=== PATIENT | male | born 1935 | race Caucasian/White ===

== ENCOUNTER → 2017-02-20 | Outpatient (REF) | payer MEDICARE, OTHER ==
[~2017-02-20] MED LIST: /QUIN20TA PO; ACTO30TA PO; ASPI81TA83 PO; METF500T4 PO; SIMV20TA2 PO; VICO5TAB OR; januvia PO
== END ==
LOC: M LAB REF 15:51
PROVIDERS: ATTEND Surgery
DX: D48.5 Neoplasm of uncertain behavior of skin (principal)

== ENCOUNTER → 2017-06-19 | Outpatient (REF) | payer MEDICARE, OTHER | LOC: M LAB REF 15:25 | PROVIDERS: ATTEND Nurse Practitioner Adult Health | DX: R41.3 Other amnesia (principal) ==

== ENCOUNTER 2017-10-09 14:06 | Inpatient (IN) | payer MEDICARE, OTHER ==
[2017-10-09 14:54] LABS: BEDSIDE GLUCOSE 326 MG/DL (83-110)
[2017-10-09 16:10] LABS: KETONE, URINE AUTO RFX TRACE mg/dL (NEGATIVE); LEUKOCYTE ESTERASE UR AUTO RFX NEGATIVE (NEGATIVE); MUCUS, URINE RFX SMALL (NEGATIVE); NITRITE, URINE AUTO RFX NEGATIVE (NEGATIVE); RBC, URINE AUTO RFX 4 /HPF (0-3); SQUAM EPITHELIAL CELL UR AURFX 0 /HPF (0-6); WBC, URINE AUTO RFX 1 /HPF (0-3)
[2017-10-09] MEDS: NS 1,000 ML IV ×2 (16:40→22:32)
[2017-10-09 16:41] LABS: BASO % 0.3 % (0.0-1.0); EOS # 0.1 10^3/uL (0.0-0.50); EOS % 1.1 % (0.0-3.0); HEMATOCRIT 38.6 % (42.0-52.0); HEMOGLOBIN 13.1 g/dl (13.5-17.5); IMMATURE GRANULOCYTE % 0.5 % (0-3.0); LYMPH # 0.8 10^3/uL (1.5-4.5); LYMPH % 7.3 % (24.0-44.0); MEAN CORPUSCULAR HEMOGLOBIN 30.8 pg (27.0-33.0); MEAN CORPUSCULAR HGB CONC 33.9 g/dl (32.0-36.5); MEAN CORPUSCULAR VOLUME 90.8 fl (80.0-96.0); MONO # 1.2 10^3/uL (0.0-0.8); MONO % 10.3 % (0.0-5.0); NEUTROPHILS # 9.2 10^3/uL (1.8-7.7); NEUTROPHILS % 80.5 % (36.0-66.0); PLATELET COUNT, AUTOMATED 124 10^3/uL (150-450); RED BLOOD COUNT 4.25 10^6/uL (4.30-6.10); RED CELL DISTRIBUTION WIDTH 12.9 % (11.5-14.5); WHITE BLOOD COUNT 11.5 10^3/uL (4.0-10.0)
[2017-10-09 17:11] LABS: AMMONIA < 10 uMOL/L (<32)
[2017-10-09 17:17] LABS: LACTIC ACID SEPSIS PROTOCOL 1.5 MMOL/L (0.4-2.0)
[2017-10-09 17:19] LABS: ALBUMIN 3.7 GM/DL (3.2-5.2); ALBUMIN/GLOBULIN RATIO 1.06 (1.00-1.93); ALKALINE PHOSPHATASE 96 U/L (45-117); ALT/SGPT < 6 U/L (12-78); ANION GAP 7 MEQ/L (8-16); AST/SGOT 11 U/L (7-37); BILIRUBIN,TOTAL 0.7 MG/DL (0.2-1.0); BLOOD UREA NITROGEN 31 MG/DL (7-18); CALCIUM LEVEL 9.3 MG/DL (8.8-10.2); CARBON DIOXIDE LEVEL 28 MEQ/L (21-32); CHLORIDE LEVEL 106 MEQ/L (98-107); CPK CREATINE PHOSPHOKINASE 235 U/L (39-308); CREATININE FOR GFR 1.57 MG/DL (0.70-1.30); GLOMERULAR FILTRATION RATE 45.1 (>35); GLUCOSE, FASTING 283 MG/DL (70-100); POTASSIUM SERUM 4.5 MEQ/L (3.5-5.1); SODIUM LEVEL 141 MEQ/L (136-145); TOTAL PROTEIN 7.2 GM/DL (6.4-8.2); TROPONIN I < 0.02 NG/ML (< 0.10)
[2017-10-09 17:24] LABS: BILIRUBIN,DIRECT 0.2 MG/DL (0.0-0.2); CK-MB VALUE MASS 3.2 NG/ML (<3.6); MB/CK RELATIVE INDEX 1.36 (< OR =4); THYROID STIMULATING HORMONE 0.622 uIU/ML (0.358-3.740)
[2017-10-09] MEDS: QUINAPRIL 20 MG TAB PO (18:43)
[2017-10-09] MEDS ORDERED: GLUCAGON FOR INJ 1 MG VIAL (J1610) SC (18:45)
[2017-10-09] MEDS: LABETALOL HCL 100 MG/20 ML VIAL IV (18:45)
[2017-10-09] MEDS ORDERED: DEXTROSE 50% 50 ML SYRINGE IV (18:45)
[2017-10-09] MEDS ORDERED: GLUCOSE 4 GM CHEW TABLET PO (18:45)
[2017-10-09] MEDS ORDERED: ONDANSETRON 4MG/2ML VIAL (J2405) IV (19:00)
[2017-10-09] MEDS: HumaLOG INSULIN (NovoLOG) PER UNIT SC (21:00)
[2017-10-09] MEDS: ACETAMINOPHEN TAB 650MG DOSE (2X325MG) PO (22:30)
[2017-10-09] MEDS: SIMVASTATIN 20 MG TAB PO (22:31)
[2017-10-09] MEDS: **hydrALAZINE HCL** 25 MG TAB PO (22:31)
[2017-10-09 23:30] LABS: CPK CREATINE PHOSPHOKINASE 188 U/L (39-308); TROPONIN I < 0.02 NG/ML (< 0.10)
[2017-10-09 23:33] LABS: CK-MB VALUE MASS 2.3 NG/ML (<3.6); MB/CK RELATIVE INDEX 1.22 (< OR =4)
[2017-10-10 02:37] LABS: BEDSIDE GLUCOSE 202 MG/DL (83-110)
[2017-10-10] MEDS: **hydrALAZINE HCL** 25 MG TAB PO ×3 (06:55→21:00)
[2017-10-10] MEDS: ACETAMINOPHEN TAB 650MG DOSE (2X325MG) PO ×2 (06:55→23:39)
[2017-10-10 07:29] LABS: BASO % 0.2 % (0.0-1.0); EOS % 0.2 % (0.0-3.0); HEMATOCRIT 35.2 % (42.0-52.0); HEMOGLOBIN 11.9 g/dl (13.5-17.5); IMMATURE GRANULOCYTE % 0.5 % (0-3.0); LYMPH # 0.5 10^3/uL (1.5-4.5); LYMPH % 4.2 % (24.0-44.0); MEAN CORPUSCULAR HEMOGLOBIN 31.4 pg (27.0-33.0); MEAN CORPUSCULAR HGB CONC 33.8 g/dl (32.0-36.5); MEAN CORPUSCULAR VOLUME 92.9 fl (80.0-96.0); MONO # 1.3 10^3/uL (0.0-0.8); MONO % 10.3 % (0.0-5.0); NEUTROPHILS # 10.9 10^3/uL (1.8-7.7); NEUTROPHILS % 84.6 % (36.0-66.0); PLATELET COUNT, AUTOMATED 104 10^3/uL (150-450); RED BLOOD COUNT 3.79 10^6/uL (4.30-6.10); RED CELL DISTRIBUTION WIDTH 13.1 % (11.5-14.5); WHITE BLOOD COUNT 12.9 10^3/uL (4.0-10.0)
[2017-10-10] MEDS: HumaLOG INSULIN (NovoLOG) PER UNIT SC ×4 (07:30→21:04)
[2017-10-10 07:52] LABS: ANION GAP 9 MEQ/L (8-16); BLOOD UREA NITROGEN 28 MG/DL (7-18); CALCIUM LEVEL 8.8 MG/DL (8.8-10.2); CARBON DIOXIDE LEVEL 24 MEQ/L (21-32); CHLORIDE LEVEL 110 MEQ/L (98-107); CREATININE FOR GFR 1.46 MG/DL (0.70-1.30); GLOMERULAR FILTRATION RATE 49.1 (>35); GLUCOSE, FASTING 236 MG/DL (70-100); POTASSIUM SERUM 4.5 MEQ/L (3.5-5.1); SODIUM LEVEL 143 MEQ/L (136-145)
[2017-10-10 07:55] LABS: CPK CREATINE PHOSPHOKINASE 188 U/L (39-308); TROPONIN I < 0.02 NG/ML (< 0.10)
[2017-10-10 07:56] LABS: CK-MB VALUE MASS 2.5 NG/ML (<3.6); MB/CK RELATIVE INDEX 1.32 (< OR =4)
[2017-10-10] MEDS: NS 1,000 ML IV ×2 (08:04→21:00)
[2017-10-10] MEDS: SINEMET 25-100 MG TAB PO ×3 (08:04→19:01)
[2017-10-10] MEDS: amLODIPine 5 MG TAB PO (08:48)
[2017-10-10] MEDS: CYANOCOBALAMIN 500 MCG TAB PO (08:48)
[2017-10-10] MEDS: ASPIRIN 81 MG ENTERIC TAB PO (08:48)
[2017-10-10] MEDS: MULTIVITAMINS/MINERALS THERAP 1 TAB PO (08:48)
[2017-10-10 15:49] LABS: CK-MB VALUE MASS 2.2 NG/ML (<3.6); CPK CREATINE PHOSPHOKINASE 203 U/L (39-308); MB/CK RELATIVE INDEX 1.08 (< OR =4); TROPONIN I < 0.02 NG/ML (< 0.10)
[2017-10-10 19:15] LABS: BEDSIDE GLUCOSE 171 MG/DL (83-110)
[2017-10-10] MEDS: SIMVASTATIN 20 MG TAB PO (21:00)
[2017-10-10 21:04] LABS: BEDSIDE GLUCOSE 277 MG/DL (83-110)
[2017-10-11] MEDS ORDERED: SLF 3 ML SYR IV (06:00)
[2017-10-11] MEDS: SINEMET 25-100 MG TAB PO ×4 (06:38→21:50)
[2017-10-11] MEDS: SLF 3 ML SYR IV ×3 (06:39→21:51)
[2017-10-11] MEDS: **hydrALAZINE HCL** 25 MG TAB PO ×3 (06:40→21:50)
[2017-10-11 07:22] LABS: BASO % 0.3 % (0.0-1.0); EOS # 0.2 10^3/uL (0.0-0.50); EOS % 1.9 % (0.0-3.0); HEMATOCRIT 34.5 % (42.0-52.0); HEMOGLOBIN 11.9 g/dl (13.5-17.5); IMMATURE GRANULOCYTE % 0.4 % (0-3.0); LYMPH # 0.9 10^3/uL (1.5-4.5); LYMPH % 8.9 % (24.0-44.0); MEAN CORPUSCULAR HEMOGLOBIN 31.5 pg (27.0-33.0); MEAN CORPUSCULAR HGB CONC 34.5 g/dl (32.0-36.5); MEAN CORPUSCULAR VOLUME 91.3 fl (80.0-96.0); MONO # 1.3 10^3/uL (0.0-0.8); MONO % 12.5 % (0.0-5.0); NEUTROPHILS # 7.9 10^3/uL (1.8-7.7); PLATELET COUNT, AUTOMATED 111 10^3/uL (150-450); RED BLOOD COUNT 3.78 10^6/uL (4.30-6.10); RED CELL DISTRIBUTION WIDTH 13.2 % (11.5-14.5); WHITE BLOOD COUNT 10.4 10^3/uL (4.0-10.0)
[2017-10-11 07:24] LABS: ANION GAP 8 MEQ/L (8-16); BLOOD UREA NITROGEN 23 MG/DL (7-18); CALCIUM LEVEL 8.6 MG/DL (8.8-10.2); CARBON DIOXIDE LEVEL 23 MEQ/L (21-32); CHLORIDE LEVEL 109 MEQ/L (98-107); CREATININE FOR GFR 1.27 MG/DL (0.70-1.30); GLOMERULAR FILTRATION RATE 57.7 (>35); GLUCOSE, FASTING 185 MG/DL (70-100); POTASSIUM SERUM 3.8 MEQ/L (3.5-5.1); SODIUM LEVEL 140 MEQ/L (136-145)
[2017-10-11] MEDS: HumaLOG INSULIN (NovoLOG) PER UNIT SC ×4 (07:47→21:00)
[2017-10-11 08:45] LABS: BEDSIDE GLUCOSE 291 MG/DL (83-110)
[2017-10-11] MEDS: ASPIRIN 81 MG ENTERIC TAB PO (11:10)
[2017-10-11] MEDS: CYANOCOBALAMIN 500 MCG TAB PO (11:10)
[2017-10-11] MEDS: MULTIVITAMINS/MINERALS THERAP 1 TAB PO (11:10)
[2017-10-11] MEDS: amLODIPine 5 MG TAB PO (11:11)
[2017-10-11 11:33] LABS: TOTAL PROTEIN 5.9 GM/DL (6.4-8.2)
[2017-10-11 12:14] LABS: BEDSIDE GLUCOSE 255 MG/DL (83-110)
[2017-10-11] MEDS: ACETAMINOPHEN TAB 650MG DOSE (2X325MG) PO (21:50)
[2017-10-11] MEDS: SIMVASTATIN 20 MG TAB PO (21:50)
[2017-10-12] MEDS: ACETAMINOPHEN TAB 650MG DOSE (2X325MG) PO ×2 (01:59→06:38)
[2017-10-12 04:33] LABS: BASO % 0.2 % (0.0-1.0); EOS # 0.2 10^3/uL (0.0-0.50); EOS % 2.2 % (0.0-3.0); HEMATOCRIT 33.5 % (42.0-52.0); HEMOGLOBIN 11.2 g/dl (13.5-17.5); IMMATURE GRANULOCYTE % 0.3 % (0-3.0); LYMPH # 0.9 10^3/uL (1.5-4.5); LYMPH % 10.2 % (24.0-44.0); MEAN CORPUSCULAR HEMOGLOBIN 30.4 pg (27.0-33.0); MEAN CORPUSCULAR HGB CONC 33.4 g/dl (32.0-36.5); MONO # 0.9 10^3/uL (0.0-0.8); MONO % 10.5 % (0.0-5.0); NEUTROPHILS # 6.6 10^3/uL (1.8-7.7); NEUTROPHILS % 76.6 % (36.0-66.0); PLATELET COUNT, AUTOMATED 130 10^3/uL (150-450); RED BLOOD COUNT 3.68 10^6/uL (4.30-6.10); RED CELL DISTRIBUTION WIDTH 13.2 % (11.5-14.5); WHITE BLOOD COUNT 8.6 10^3/uL (4.0-10.0)
[2017-10-12 05:00] LABS: ANION GAP 8 MEQ/L (8-16); BLOOD UREA NITROGEN 24 MG/DL (7-18); CALCIUM LEVEL 8.7 MG/DL (8.8-10.2); CARBON DIOXIDE LEVEL 24 MEQ/L (21-32); CHLORIDE LEVEL 106 MEQ/L (98-107); GLOMERULAR FILTRATION RATE 51.5 (>35); GLUCOSE, FASTING 176 MG/DL (70-100); SODIUM LEVEL 138 MEQ/L (136-145)
[2017-10-12] MEDS: **hydrALAZINE HCL** 25 MG TAB PO ×3 (06:38→21:05)
[2017-10-12] MEDS: SLF 3 ML SYR IV ×3 (06:38→21:05)
[2017-10-12] MEDS: HumaLOG INSULIN (NovoLOG) PER UNIT SC ×4 (07:18→21:06)
[2017-10-12] MEDS: CYANOCOBALAMIN 500 MCG TAB PO (08:59)
[2017-10-12] MEDS: ASPIRIN 81 MG ENTERIC TAB PO (08:59)
[2017-10-12] MEDS: MULTIVITAMINS/MINERALS THERAP 1 TAB PO (09:00)
[2017-10-12] MEDS: SINEMET 25-100 MG TAB PO ×4 (09:00→21:04)
[2017-10-12] MEDS: amLODIPine 5 MG TAB PO (09:02)
[2017-10-12 11:19] LABS: BEDSIDE GLUCOSE 182 MG/DL (83-110)
[2017-10-12 11:19] LABS: BEDSIDE GLUCOSE 308 MG/DL (83-110)
[2017-10-12 11:39] LABS: BEDSIDE GLUCOSE 306 MG/DL (83-110)
[2017-10-12 16:47] LABS: BEDSIDE GLUCOSE 325 MG/DL (83-110)
[2017-10-12] MEDS: SIMVASTATIN 20 MG TAB PO (21:04)
[2017-10-12 21:06] LABS: BEDSIDE GLUCOSE 272 MG/DL (83-110)
[2017-10-13] MEDS: ACETAMINOPHEN TAB 650MG DOSE (2X325MG) PO (04:01)
[2017-10-13] MEDS: **hydrALAZINE HCL** 25 MG TAB PO ×3 (05:21→21:11)
[2017-10-13] MEDS: NORCO, ANEXSIA 5/325MG TABLET (HYDROcodone/ACETAMINOPHEN) PO (05:21)
[2017-10-13 05:29] LABS: BASO % 0.2 % (0.0-1.0); EOS # 0.2 10^3/uL (0.0-0.50); EOS % 2.4 % (0.0-3.0); HEMATOCRIT 35.4 % (42.0-52.0); HEMOGLOBIN 11.9 g/dl (13.5-17.5); IMMATURE GRANULOCYTE % 0.5 % (0-3.0); LYMPH # 0.7 10^3/uL (1.5-4.5); LYMPH % 7.8 % (24.0-44.0); MEAN CORPUSCULAR HEMOGLOBIN 30.9 pg (27.0-33.0); MEAN CORPUSCULAR HGB CONC 33.6 g/dl (32.0-36.5); MEAN CORPUSCULAR VOLUME 91.9 fl (80.0-96.0); MONO # 0.9 10^3/uL (0.0-0.8); MONO % 10.4 % (0.0-5.0); NEUTROPHILS % 78.7 % (36.0-66.0); PLATELET COUNT, AUTOMATED 146 10^3/uL (150-450); RED BLOOD COUNT 3.85 10^6/uL (4.30-6.10); RED CELL DISTRIBUTION WIDTH 13.1 % (11.5-14.5); WHITE BLOOD COUNT 8.8 10^3/uL (4.0-10.0)
[2017-10-13] MEDS: SLF 3 ML SYR IV ×3 (05:44→21:12)
[2017-10-13 05:47] LABS: ANION GAP 5 MEQ/L (8-16); BLOOD UREA NITROGEN 31 MG/DL (7-18); CARBON DIOXIDE LEVEL 26 MEQ/L (21-32); CHLORIDE LEVEL 105 MEQ/L (98-107); CREATININE FOR GFR 1.54 MG/DL (0.70-1.30); GLOMERULAR FILTRATION RATE 46.2 (>35); GLUCOSE, FASTING 189 MG/DL (70-100); POTASSIUM SERUM 4.4 MEQ/L (3.5-5.1); SODIUM LEVEL 136 MEQ/L (136-145)
[2017-10-13] MEDS: HumaLOG INSULIN (NovoLOG) PER UNIT SC ×4 (07:36→21:00)
[2017-10-13] MEDS: SINEMET 25-100 MG TAB PO ×4 (08:32→21:10)
[2017-10-13] MEDS: amLODIPine 5 MG TAB PO (08:32)
[2017-10-13] MEDS: ASPIRIN 81 MG ENTERIC TAB PO (08:32)
[2017-10-13] MEDS: CYANOCOBALAMIN 500 MCG TAB PO (08:33)
[2017-10-13] MEDS: MULTIVITAMINS/MINERALS THERAP 1 TAB PO (08:33)
[2017-10-13 08:58] LABS: VITAMIN B12 LEVEL 270 PG/ML (247-911)
[2017-10-13 11:49] LABS: BEDSIDE GLUCOSE 366 MG/DL (83-110)
[2017-10-13 14:31] LABS: ALBUMIN 3.29 GM/DL (3.29-5.55); ALBUMIN % 55.8 % (55.8-66.1); ALPHA-1-GLOBULIN % 6.3 % (2.9-4.9); ALPHA-1-GLOBULINS 0.37 GM/DL (0.17-0.41); ALPHA-2-GLOBULINS % 12.7 % (7.1-11.8); BETA-1-GLOBULINS % 6.2 % (4.7-7.2); BETA-2-GLOBULINS % 5.8 % (3.2-6.5); GAMMA GLOBULIN % 13.2 % (11.1-18.8)
[2017-10-13 14:32] LABS: ALPHA-2-GLOBULINS 0.75 GM/DL (0.42-0.99); BETA-1-GLOBULINS 0.37 GM/DL (0.28-0.60); BETA-2-GLOBULINS 0.34 GM/DL (0.19-0.55); GAMMA GLOBULINS 0.78 GM/DL (0.65-1.58)
[2017-10-13 17:11] LABS: BEDSIDE GLUCOSE 177 MG/DL (83-110)
[2017-10-13 19:54] LABS: BEDSIDE GLUCOSE 234 MG/DL (83-110)
[2017-10-13] MEDS: SIMVASTATIN 20 MG TAB PO (21:10)
[2017-10-14] MEDS: **hydrALAZINE HCL** 25 MG TAB PO ×3 (05:09→23:19)
[2017-10-14] MEDS: ACETAMINOPHEN TAB 650MG DOSE (2X325MG) PO (05:09)
[2017-10-14] MEDS: SLF 3 ML SYR IV ×3 (05:09→23:03)
[2017-10-14 05:24] LABS: BASO % 0.1 % (0.0-1.0); EOS # 0.1 10^3/uL (0.0-0.50); EOS % 0.3 % (0.0-3.0); HEMATOCRIT 35.7 % (42.0-52.0); IMMATURE GRANULOCYTE % 0.5 % (0-3.0); LYMPH # 0.4 10^3/uL (1.5-4.5); LYMPH % 2.3 % (24.0-44.0); MEAN CORPUSCULAR HGB CONC 33.6 g/dl (32.0-36.5); MEAN CORPUSCULAR VOLUME 92.2 fl (80.0-96.0); MONO # 1.1 10^3/uL (0.0-0.8); MONO % 6.2 % (0.0-5.0); NEUTROPHILS # 16.5 10^3/uL (1.8-7.7); NEUTROPHILS % 90.6 % (36.0-66.0); PLATELET COUNT, AUTOMATED 148 10^3/uL (150-450); RED BLOOD COUNT 3.87 10^6/uL (4.30-6.10); WHITE BLOOD COUNT 18.2 10^3/uL (4.0-10.0)
[2017-10-14 05:43] LABS: ANION GAP 6 MEQ/L (8-16); BLOOD UREA NITROGEN 30 MG/DL (7-18); CALCIUM LEVEL 9.2 MG/DL (8.8-10.2); CARBON DIOXIDE LEVEL 26 MEQ/L (21-32); CHLORIDE LEVEL 101 MEQ/L (98-107); CREATININE FOR GFR 1.51 MG/DL (0.70-1.30); GLOMERULAR FILTRATION RATE 47.2 (>35); GLUCOSE, FASTING 306 MG/DL (70-100); POTASSIUM SERUM 4.7 MEQ/L (3.5-5.1); SODIUM LEVEL 133 MEQ/L (136-145)
[2017-10-14] MEDS: HumaLOG INSULIN (NovoLOG) PER UNIT SC ×4 (08:36→21:00)
[2017-10-14] MEDS: CYANOCOBALAMIN 500 MCG TAB PO (09:34)
[2017-10-14] MEDS: SINEMET 25-100 MG TAB PO ×4 (09:34→21:10)
[2017-10-14] MEDS: MULTIVITAMINS/MINERALS THERAP 1 TAB PO (09:34)
[2017-10-14] MEDS: ASPIRIN 81 MG ENTERIC TAB PO (09:34)
[2017-10-14] MEDS: amLODIPine 5 MG TAB PO (09:38)
[2017-10-14 11:27] LABS: BEDSIDE GLUCOSE 253 MG/DL (83-110)
[2017-10-14 12:10] LABS: BEDSIDE GLUCOSE 206 MG/DL (83-110)
[2017-10-14 16:57] LABS: BEDSIDE GLUCOSE 293 MG/DL (83-110)
[2017-10-14 17:20] LABS: KETONE, URINE AUTO RFX TRACE mg/dL (NEGATIVE); LEUKOCYTE ESTERASE UR AUTO RFX NEGATIVE (NEGATIVE); NITRITE, URINE AUTO RFX NEGATIVE (NEGATIVE); RBC, URINE AUTO RFX 0 /HPF (0-3); SPECIFIC GRAVITY UR AUTO RFX 1.009 (1.002-1.035); SQUAM EPITHELIAL CELL UR AURFX 0 /HPF (0-6); WBC, URINE AUTO RFX 1 /HPF (0-3)
[2017-10-14] MEDS: SIMVASTATIN 20 MG TAB PO (21:10)
[2017-10-14 22:05] LABS: BEDSIDE GLUCOSE 224 MG/DL (83-110)
[2017-10-15] MEDS: ACETAMINOPHEN TAB 650MG DOSE (2X325MG) PO (03:25)
[2017-10-15] MEDS: NORCO, ANEXSIA 5/325MG TABLET (HYDROcodone/ACETAMINOPHEN) PO (04:16)
[2017-10-15] MEDS: SLF 3 ML SYR IV ×3 (05:19→22:05)
[2017-10-15] MEDS: **hydrALAZINE HCL** 25 MG TAB PO ×3 (05:19→22:04)
[2017-10-15 05:28] LABS: BASO % 0.2 % (0.0-1.0); EOS # 0.2 10^3/uL (0.0-0.50); EOS % 2.1 % (0.0-3.0); HEMATOCRIT 33.3 % (42.0-52.0); HEMOGLOBIN 11.1 g/dl (13.5-17.5); IMMATURE GRANULOCYTE % 0.6 % (0-3.0); LYMPH # 0.8 10^3/uL (1.5-4.5); LYMPH % 8.2 % (24.0-44.0); MEAN CORPUSCULAR HEMOGLOBIN 30.9 pg (27.0-33.0); MEAN CORPUSCULAR HGB CONC 33.3 g/dl (32.0-36.5); MEAN CORPUSCULAR VOLUME 92.8 fl (80.0-96.0); MONO # 0.9 10^3/uL (0.0-0.8); MONO % 9.5 % (0.0-5.0); NEUTROPHILS # 7.4 10^3/uL (1.8-7.7); NEUTROPHILS % 79.4 % (36.0-66.0); PLATELET COUNT, AUTOMATED 155 10^3/uL (150-450); RED BLOOD COUNT 3.59 10^6/uL (4.30-6.10); WHITE BLOOD COUNT 9.3 10^3/uL (4.0-10.0)
[2017-10-15 05:39] LABS: ANION GAP 5 MEQ/L (8-16); BLOOD UREA NITROGEN 29 MG/DL (7-18); CARBON DIOXIDE LEVEL 26 MEQ/L (21-32); CHLORIDE LEVEL 104 MEQ/L (98-107); CREATININE FOR GFR 1.53 MG/DL (0.70-1.30); GLOMERULAR FILTRATION RATE 46.5 (>35); GLUCOSE, FASTING 210 MG/DL (70-100); POTASSIUM SERUM 4.5 MEQ/L (3.5-5.1); SODIUM LEVEL 135 MEQ/L (136-145)
[2017-10-15] MEDS: HumaLOG INSULIN (NovoLOG) PER UNIT SC ×4 (07:24→22:03)
[2017-10-15 08:06] LABS: COPPER PLASMA 94 ug/dL (72-166)
[2017-10-15] MEDS: SINEMET 25-100 MG TAB PO ×4 (09:06→22:03)
[2017-10-15] MEDS: ASPIRIN 81 MG ENTERIC TAB PO (09:06)
[2017-10-15] MEDS: CYANOCOBALAMIN 500 MCG TAB PO (09:06)
[2017-10-15] MEDS: MULTIVITAMINS/MINERALS THERAP 1 TAB PO (09:07)
[2017-10-15] MEDS: amLODIPine 5 MG TAB PO (09:08)
[2017-10-15 11:51] LABS: BEDSIDE GLUCOSE 206 MG/DL (83-110)
[2017-10-15 17:02] LABS: BEDSIDE GLUCOSE 298 MG/DL (83-110)
[2017-10-15 20:32] LABS: BEDSIDE GLUCOSE 263 MG/DL (83-110)
[2017-10-15] MEDS: SIMVASTATIN 20 MG TAB PO (22:04)
[2017-10-16] MEDS: ACETAMINOPHEN TAB 650MG DOSE (2X325MG) PO ×2 (02:00→21:54)
[2017-10-16] MEDS: NORCO, ANEXSIA 5/325MG TABLET (HYDROcodone/ACETAMINOPHEN) PO (04:36)
[2017-10-16 05:50] LABS: BASO % 0.3 % (0.0-1.0); EOS # 0.2 10^3/uL (0.0-0.50); EOS % 2.5 % (0.0-3.0); HEMATOCRIT 33.4 % (42.0-52.0); HEMOGLOBIN 11.2 g/dl (13.5-17.5); IMMATURE GRANULOCYTE % 0.3 % (0-3.0); LYMPH # 0.8 10^3/uL (1.5-4.5); LYMPH % 9.6 % (24.0-44.0); MEAN CORPUSCULAR HEMOGLOBIN 30.3 pg (27.0-33.0); MEAN CORPUSCULAR HGB CONC 33.5 g/dl (32.0-36.5); MEAN CORPUSCULAR VOLUME 90.3 fl (80.0-96.0); MONO % 11.4 % (0.0-5.0); NEUTROPHILS # 6.6 10^3/uL (1.8-7.7); NEUTROPHILS % 75.9 % (36.0-66.0); PLATELET COUNT, AUTOMATED 175 10^3/uL (150-450); RED CELL DISTRIBUTION WIDTH 12.8 % (11.5-14.5); WHITE BLOOD COUNT 8.7 10^3/uL (4.0-10.0)
[2017-10-16 06:07] LABS: ANION GAP 6 MEQ/L (8-16); BLOOD UREA NITROGEN 37 MG/DL (7-18); CALCIUM LEVEL 8.9 MG/DL (8.8-10.2); CARBON DIOXIDE LEVEL 27 MEQ/L (21-32); CHLORIDE LEVEL 102 MEQ/L (98-107); CREATININE FOR GFR 1.57 MG/DL (0.70-1.30); GLOMERULAR FILTRATION RATE 45.1 (>35); GLUCOSE, FASTING 232 MG/DL (70-100); POTASSIUM SERUM 4.6 MEQ/L (3.5-5.1); SODIUM LEVEL 135 MEQ/L (136-145)
[2017-10-16] MEDS: **hydrALAZINE HCL** 25 MG TAB PO ×3 (06:12→21:55)
[2017-10-16] MEDS: SLF 3 ML SYR IV ×3 (06:13→21:57)
[2017-10-16] MEDS: HumaLOG INSULIN (NovoLOG) PER UNIT SC ×4 (08:26→21:56)
[2017-10-16] MEDS: SINEMET 25-100 MG TAB PO ×4 (08:26→21:54)
[2017-10-16] MEDS: amLODIPine 5 MG TAB PO (08:26)
[2017-10-16] MEDS: MULTIVITAMINS/MINERALS THERAP 1 TAB PO (08:26)
[2017-10-16] MEDS: CYANOCOBALAMIN 500 MCG TAB PO (08:26)
[2017-10-16] MEDS: ASPIRIN 81 MG ENTERIC TAB PO (08:26)
[2017-10-16 11:48] LABS: BEDSIDE GLUCOSE 287 MG/DL (83-110)
[2017-10-16 16:42] LABS: BEDSIDE GLUCOSE 234 MG/DL (83-110)
[2017-10-16 21:34] LABS: BEDSIDE GLUCOSE 358 MG/DL (83-110)
[2017-10-16] MEDS: SIMVASTATIN 20 MG TAB PO (21:55)
[2017-10-17] MEDS: **hydrALAZINE HCL** 25 MG TAB PO ×2 (05:55→13:12)
[2017-10-17] MEDS: NORCO, ANEXSIA 5/325MG TABLET (HYDROcodone/ACETAMINOPHEN) PO ×2 (05:56→13:33)
[2017-10-17] MEDS: SLF 3 ML SYR IV ×2 (05:58→13:15)
[2017-10-17 06:26] LABS: BASO % 0.4 % (0.0-1.0); EOS # 0.2 10^3/uL (0.0-0.50); HEMOGLOBIN 11.1 g/dl (13.5-17.5); IMMATURE GRANULOCYTE % 0.6 % (0-3.0); LYMPH # 0.9 10^3/uL (1.5-4.5); MEAN CORPUSCULAR HEMOGLOBIN 30.7 pg (27.0-33.0); MEAN CORPUSCULAR HGB CONC 33.6 g/dl (32.0-36.5); MEAN CORPUSCULAR VOLUME 91.4 fl (80.0-96.0); MONO # 0.8 10^3/uL (0.0-0.8); MONO % 10.6 % (0.0-5.0); NEUTROPHILS # 5.2 10^3/uL (1.8-7.7); NEUTROPHILS % 72.4 % (36.0-66.0); PLATELET COUNT, AUTOMATED 169 10^3/uL (150-450); RED BLOOD COUNT 3.61 10^6/uL (4.30-6.10); WHITE BLOOD COUNT 7.1 10^3/uL (4.0-10.0)
[2017-10-17 06:42] LABS: ANION GAP 6 MEQ/L (8-16); BLOOD UREA NITROGEN 35 MG/DL (7-18); CALCIUM LEVEL 9.1 MG/DL (8.8-10.2); CARBON DIOXIDE LEVEL 28 MEQ/L (21-32); CHLORIDE LEVEL 102 MEQ/L (98-107); CREATININE FOR GFR 1.55 MG/DL (0.70-1.30); GLOMERULAR FILTRATION RATE 45.8 (>35); GLUCOSE, FASTING 208 MG/DL (70-100); POTASSIUM SERUM 4.5 MEQ/L (3.5-5.1); SODIUM LEVEL 136 MEQ/L (136-145)
[2017-10-17] MEDS: HumaLOG INSULIN (NovoLOG) PER UNIT SC ×2 (07:45→13:13)
[2017-10-17] MEDS: SINEMET 25-100 MG TAB PO ×2 (07:45→13:12)
[2017-10-17] MEDS: CYANOCOBALAMIN 500 MCG TAB PO (07:45)
[2017-10-17] MEDS: ASPIRIN 81 MG ENTERIC TAB PO (07:45)
[2017-10-17] MEDS: MULTIVITAMINS/MINERALS THERAP 1 TAB PO (07:45)
[2017-10-17] MEDS: amLODIPine 5 MG TAB PO (07:47)
[2017-10-17 12:56] LABS: BEDSIDE GLUCOSE 282 MG/DL (83-110)
== END 2017-10-17 13:50 | DRG 948 ==
LOC: M MSPAV 10-16 21:59 → M PCU 10-10 18:12 → M ED 14:06 → M ED INP 19:15
PROVIDERS: Internal Medicine
DX: R53.1 Weakness (principal); G20 Parkinson's disease; M25.462 Effusion, left knee; N18.3 Chronic kidney disease, stage 3 (moderate); I12.9 Hypertensive chronic kidney disease with stage 1 through stage 4 chronic kidney disease, or unspecified chronic kidney disease; E11.9 Type 2 diabetes mellitus without complications; E78.5 Hyperlipidemia, unspecified; I25.10 Atherosclerotic heart disease of native coronary artery without angina pectoris; R29.6 Repeated falls; I16.0 Hypertensive urgency; Z79.82 Long term (current) use of aspirin; Z79.84 Long term (current) use of oral hypoglycemic drugs; Z95.5 Presence of coronary angioplasty implant and graft; Z79.899 Other long term (current) drug therapy

== ENCOUNTER → 2017-11-18 | Outpatient (REF) | payer MEDICARE, OTHER ==
[2017-11-18 13:04] LABS: VITAMIN B12 LEVEL 654 PG/ML (247-911)
== END ==
LOC: M LAB REF 12:03
DX: D51.9 Vitamin B12 deficiency anemia, unspecified (principal)
CPT/HCPCS: 82607

== ENCOUNTER 2018-07-03 11:00 | Outpatient (RCR) | payer MEDICARE, OTHER ==
[~2018-07-03 11:00] MED LIST changes: +AMLO5TAB4 PO; +CARB25TA18 PO; +CARB25TA9 PO; +GLIP-162 PO; +HYDR25TA PO; +IRON240T PO; +QUIN1TAB4 PO; +SITA50TAB PO; +VITA10002 PO; +VITA500T88 PO; +VITMTA PO
== END 2018-07-06 ==
LOC: M PT 11:00
PROVIDERS: ATTEND Physical Medicine & Rehabilitation
DX: Z47.89 Encounter for other orthopedic aftercare (principal); M47.896 Other spondylosis, lumbar region; G20 Parkinson's disease
CPT/HCPCS: 97110; 97112; 97163; G8978; G8979

== ENCOUNTER 2018-08-04 08:30 | Outpatient (RCR) | payer MEDICARE, OTHER ==
[~2018-08-04 08:30] MED LIST changes: -AMLO5TAB4 PO; +AMLO5TAB6 PO
== END 2018-08-06 ==
LOC: M PT 08:30
PROVIDERS: ATTEND Physical Medicine & Rehabilitation
DX: Z51.89 Encounter for other specified aftercare (principal); G20 Parkinson's disease; M54.5 Low back pain; R26.89 Other abnormalities of gait and mobility
CPT/HCPCS: 97110; 97112; 97530; G8978; G8979

== ENCOUNTER 2019-03-04 12:36 | Outpatient (RCR) | payer MEDICARE, OTHER ==
[~2019-03-04 12:36] MED LIST changes: -/QUIN20TA PO; +ACCU1TAB2 PO; +CYAN100049 PO; -VITA10002 PO
== END 2019-03-06 ==
LOC: M PT 12:36
PROVIDERS: ATTEND Physician Assistant
DX: Z47.89 Encounter for other orthopedic aftercare (principal); G20 Parkinson's disease; M43.17 Spondylolisthesis, lumbosacral region; M48.07 Spinal stenosis, lumbosacral region; M51.37 Other intervertebral disc degeneration, lumbosacral region

== ENCOUNTER 2019-03-30 13:00 | Outpatient (RCR) | payer MEDICARE, OTHER | END 2019-04-05 | LOC: M PT 13:00 | PROVIDERS: ATTEND Physician Assistant | DX: Z51.89 Encounter for other specified aftercare (principal); G20 Parkinson's disease; M43.17 Spondylolisthesis, lumbosacral region; M48.07 Spinal stenosis, lumbosacral region; M51.37 Other intervertebral disc degeneration, lumbosacral region ==

== ENCOUNTER → 2019-12-01 | Outpatient (REF) | payer MEDICARE, OTHER | LOC: M LAB REF 12:10 | PROVIDERS: ATTEND Nurse Practitioner Adult Health | DX: D51.9 Vitamin B12 deficiency anemia, unspecified (principal) ==

== ENCOUNTER 2019-12-20 12:53 | Inpatient (IN) | payer MEDICARE, OTHER ==
[~2019-12-20] VITALS: Ht 177.8 cm; Wt 67.7 kg
[2019-12-20 14:18] LABS: BASO % 0.3 % (0.0-1.0); EOS # 0.5 10^3/uL (0.0-0.5); EOS % 6.8 % (0.0-3.0); HEMATOCRIT 36.1 % (42.0-52.0); HEMOGLOBIN 11.8 g/dl (13.5-17.5); LYMPH % 12.9 % (24.0-44.0); MEAN CORPUSCULAR HEMOGLOBIN 31.5 pg (27.0-33.0); MEAN CORPUSCULAR HGB CONC 32.7 g/dl (32.0-36.5); MEAN CORPUSCULAR VOLUME 96.3 fl (80.0-96.0); MONO # 0.8 10^3/uL (0.0-0.8); MONO % 10.5 % (0.0-5.0); NEUTROPHILS # 5.2 10^3/uL (1.5-8.5); NEUTROPHILS % 69.2 % (36.0-66.0); PLATELET COUNT, AUTOMATED 120 10^3/uL (150-450); RED BLOOD COUNT 3.75 10^6/uL (4.30-6.10); WHITE BLOOD COUNT 7.5 10^3/uL (4.0-10.0)
--- NOTE | 2019-12-20 15:05 | REP ---
PORTABLE CHEST X-RAY: Sitting AP view. HISTORY: Trauma. COMPARISON CHEST X-RAY: October 14, 2017. FINDINGS: The left hemidiaphragm remains somewhat elevated. Prior sternotomy wires are seen along with EKG monitoring electrodes. There are some coarse increased lung markings in the right base suggesting atelectasis and/or infiltrate. Plate-like atelectasis is seen in the left base above the elevated left hemidiaphragm. The superior mediastinum is not widened. No acute bony abnormality is seen. IMPRESSION: Increased markings in the right base consistent with plate-like atelectasis versus infiltrate. Minimal plate-like atelectasis left base. Elevated left hemidiaphragm unchanged. Otherwise no acute disease. Electronically Signed by Nimesh Mitchell MD 12/20/2019 06:13 P
[2019-12-20] MEDS ORDERED: INSUDET SC (15:08)
[2019-12-20] MEDS ORDERED: NOVOINJ SC (15:08)
[2019-12-20] MEDS ORDERED: B-12100T2 PO (15:08)
[2019-12-20] MEDS ORDERED: ASCO500T PO (15:08)
[2019-12-20] MEDS ORDERED: AZIL0.5T PO (15:08)
[2019-12-20] MEDS ORDERED: DOCU100C16 PO ×2 (15:08→18:38)
[2019-12-20 15:43] LABS: ALBUMIN 3.3 GM/DL (3.2-5.2); ALT/SGPT 7 U/L (12-78); BILIRUBIN,DIRECT 0.2 MG/DL (0.0-0.2); BILIRUBIN,TOTAL 0.6 MG/DL (0.2-1.0); BLOOD UREA NITROGEN 27 MG/DL (7-18); CALCIUM LEVEL 9.1 MG/DL (8.8-10.2); CARBON DIOXIDE LEVEL 29 MEQ/L (21-32); CHLORIDE LEVEL 107 MEQ/L (98-107); CK-MB VALUE MASS 2.2 NG/ML (<3.6); CPK CREATINE PHOSPHOKINASE 81 U/L (39-308); CREATININE FOR GFR 1.31 MG/DL (0.70-1.30); GLOMERULAR FILTRATION RATE 55.4 (>35); GLUCOSE, FASTING 101 MG/DL (70-100); MB/CK RELATIVE INDEX 2.72 (< OR =4); POTASSIUM SERUM 4.4 MEQ/L (3.5-5.1); SODIUM LEVEL 142 MEQ/L (136-145); TOTAL PROTEIN 7.1 GM/DL (6.4-8.2); TROPONIN I < 0.02 NG/ML (< 0.10)
[2019-12-20] MEDS ORDERED: LABETALOL 100MG/20ML VIAL IV STA (16:14)
[2019-12-20] MEDS ORDERED: DOXYCYCLINE HYCLATE 100MG TABLET PO ONE (16:15)
--- NOTE | 2019-12-20 17:01 | REPVR ---
PROCEDURE INFORMATION: Exam: CT Head Without Contrast Exam date and time: 12/20/2019 3:14 PM Age: 84 years old Clinical indication: Altered mental status/memory loss; Confusion or disorientation; Additional info: Altered loc TECHNIQUE: Imaging protocol: Computed tomography of the head without contrast. Radiation optimization: All CT scans at this facility use at least one of these dose optimization techniques: automated exposure control; mA and/or kV adjustment per patient size (includes targeted exams where dose is matched to clinical indication); or iterative reconstruction. COMPARISON: CT Head without contrast 10/09/2017 2:41 PM FINDINGS: Brain: No acute intracerebral abnormality or injury. No acute infarct or intracerebral bleed. 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 [place] Stroke Program Early CT Score (ASPECTS score) = 10. Ventricles: Ventriculomegaly is somewhat prominent, out of keeping with the degree of cortical sulci enlargement, which could be secondary to predominant central cerebral atrophy or normal pressure hydrocephalus. I would recommend correlation clinically for signs of abnormal gait, urinary incontinence and dementia, which could be indicative of normal pressure hydrocephalus. Bones/joints: Unremarkable. No acute fracture. Sinuses: Visualized sinuses are unremarkable. No fluid levels. Mastoid air cells: Visualized mastoid air cells are well aerated. Soft tissues: Unremarkable. IMPRESSION: 1. No acute intracerebral abnormality or injury. No acute infarct or intracerebral bleed. 2. 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 3. Ventriculomegaly is somewhat prominent, out of keeping with the degree of cortical sulci enlargement, which could be secondary to predominant central cerebral atrophy or normal pressure hydrocephalus. I would recommend correlation clinically for signs of abnormal gait, urinary incontinence and dementia, which could be indicative of normal pressure hydrocephalus. 4. [place] Stroke Program Early CT Score (ASPECTS score) = 10. Electronically signed by: Christiano Miller On 12/20/2019 17:01:05 PM
--- NOTE | 2019-12-20 17:42 | HPEPDOC ---
[facility] Medical History & Physical Date of Admission Dec 20, 2019 Date of Service: Dec 20, 2019 Primary Care Physician: Marianela Spann Attending Physician: JOSE CARLOS MD Vital Signs Vital Signs Date Time Temp Pulse Resp B/P (MAP) Pulse Ox O2 Delivery O2 Flow Rate FiO2 12/20/19 17:15 75 20 136/63 (87) 12/20/19 15:58 99 12/20/19 13:09 96.4 Room Air Laboratory Data Labs 24H Laboratory Tests 2 12/20/19 14:06: Immature Granulocyte % (Auto) 0.3, Neutrophils (%) (Auto) 69.2H, Lymphocytes (%) (Auto) 12.9L, Monocytes (%) (Auto) 10.5H, Eosinophils (%) (Auto) 6.8H, Basophils (%) (Auto) 0.3, Neutrophils # (Auto) 5.2, Lymphocytes # (Auto) 1.0L, Monocytes # (Auto) 0.8, Eosinophils # (Auto) 0.5, Basophils # (Auto) 0.0, Nucleated Red Blood Cells % (auto) 0.0, Anion Gap 6L, Glomerular Filtration Rate 55.4, Calcium Level 9.1, Total Bilirubin 0.6, Direct Bilirubin 0.2, Aspartate Amino Transf (AST/SGOT) 16, Alanine Aminotransferase (ALT/SGPT) 7L, Alkaline Phosphatase 77, Total Creatine Kinase 81, Creatine Kinase MB 2.2, Creatine Kinase MB Relative Index 2.72, Troponin I < 0.02, Total Protein 7.1, Albumin 3.3, Albumin/Globulin Ratio 0.9, Thyroid Stimulating Hormone (TSH) 1.390 CBC/BMP Laboratory Tests 12/20/19 14:06 Home Medications Scheduled Amlodipine Besylate (Amlodipine Besylate) 5 Mg Tab, 5 MG PO DAILY Ascorbic Acid (Vitamin C) 500 Mg Tab, 500 MG PO DAILY Ascorbic Acid (Ascorbic Acid) 500 Mg Tablet, 1 TAB PO DAILY Aspirin (Aspirin Low Dose) 81 Mg Tab, 81 MG PO DAILY Carbidopa/Levodopa (Carbidopa-Levodopa 25-100 Tab) 1 Tab Tab, 2 TAB PO QID Cyanocobalamin (Vitamin B-12) (Vitamin B-12) 1,000 Mcg Tab, 1,000 MCG PO DAILY Cyanocobalamin (Vitamin B-12) (Vitamin B-12) 100 Mcg Tablet, 1 TAB PO DAILY Docusate Sodium (Docusate Sodium) 100 Mg Capsule, 100 MG PO DAILY for con stipation Ferrous Gluconate (Iron) 240 Mg Tab, 240 MG PO DAILY Glipizide (Glipizide Xl) 5 Mg Tab, 5 MG PO DAILY Insulin Aspart (Novolog) 100 Unit/1 Ml Cartridge, 4 UNITS SC QAM-PM Insulin Detemir (Levemir) 100 Unit/1 Ml Vial, 8 UNITS SC QPM Multivitamins (Thera M Plus Tablet) 1 Tab Tab, 1 TAB PO DAILY Rasagiline Mesylate (Azilect) 0.5 Mg Tablet, 1 TAB PO DAILY Simvastatin (Simvastatin) 20 Mg Tab, 20 MG PO QPM Sitagliptin (Januvia) 50 Mg Tab, 50 MG PO DAILY Allergies Coded Allergies: No Known Allergies (Unverified , 12/20/19) JOSE CARLOS MD Dec 20, 2019 17:42
[2019-12-20] MEDS ORDERED: ACETAMINOPHEN TAB 650MG DOSE (2X325MG) PO PRN (18:00)
[2019-12-20] MEDS ORDERED: GLUCAGON INJ 1MG VIAL SC PRN (18:00)
[2019-12-20] MEDS ORDERED: DEXTROSE 50% 50 ML SYRINGE IV PRN (18:00)
[2019-12-20] MEDS ORDERED: GLUCOSE 4GM CHEW TABLET PO PRN (18:00)
--- NOTE | 2019-12-20 18:18 | HPEPDOC ---
[facility] Medical History & Physical Date of Admission Dec 20, 2019 Date of Service: Dec 20, 2019 Primary Care Physician: Marianela Spann Attending Physician: JOSE CARLOS MD History and Physical CHIEF COMPLAINT: Weakness HISTORY OF PRESENT ILLNESS: Patient is an 84 year old male with a long standing history of Parkinsons Dementia who presented to the [facility] ER with complaint of weakness. The patient himself has dementia and is unable to provide a complete history. However he had reportedly developed weakness earlier in the day. He has not fallen. He denies and there has been no report of loss of consciousness. The patient states that he was dizzy earlier however that has resolved. He denies any urinary incontinence. In the ER the patient was hypertensive and receive d oral labetalol. He was afebrile and labs were otherwise unremarkable. He did received CT imaging of the head which demonstrated ventriculomegaly. Hospitalist service was consulted and the patient was admitted for further evaluation and management PAST MEDICAL HISTORY: 1. Parkinson's vs Lewy Body Dementia 2. CKD Stage III 3. Hypertension 4. Diabetes Mellitus Type 2 5. Hyperlipidemia 6. CAD s/p CABG PAST SURGICAL HISTORY: 1. CABG 2. Appendectomy 3. Herniography 4. Tonsillectomy 5. Polyp Removal SOCIAL HISTORY: Patient lives at home with his who primarily takes care of him and assists him with his ADLs. He ambulates with a cane at baseline. He denies any alcohol use. He denies tobacco use. He denies IV or illicit drug use FAMILY HISTORY: Patient is unsure of his family history and unable to provide ALLERGIES: Please see below. REVIEW OF SYSTEMS: CONSTITUTIONAL: Denies fevers, chills, unintentional weightloss or weight gain HEENT: Denies dysphagia. CARDIOVASCULAR: Denies chest pain. Denies palpitations RESPIRATORY: Denies shortness of breath or coughing GASTROINTESTINAL: Denies abdominal pain, nausea, vomiting, or diarrhea GENITOURINARY: Denies dysuria, increased frequency or urgency. Denies urinary incontinence SKIN: Denies rashes or lesions MUSCULOSKELETAL: Denies muscle pain. Denies current weakness NEUROLOGICAL: Denies changes in speech or gait from baseline PSYCHIATRIC: Denies depression or anxiety ENDOCRINE: Denies heat intolerance or cold intolerance HEMATOLOGIC/LYMPHATIC: Denies easy bruising or bleeding. Denies history of DVT or PE HOME MEDICATIONS: Please see below. PHYSICAL EXAMINATION: VITAL SIGNS: Temperature 96.4, pulse 71, respiratory rate 20, blood pressure 136/63, pulse oximetry 99% on room air. GENERAL APPEARANCE: Awake, alert, and oriented. Answers questions appropriately. Poor memory. Appears in no acute distress. Lying in bed comfortably HEENT: Atraumatic, normocephalic. Eyes are nonicteric. Trachea is midline. Mucous membranes are pink and moist CARDIOVASCULAR: Normal S1, S2. Regular rate and rhythm. No clicks rubs or murmurs. LUNGS: Clear vesicular breath sounds bilaterally with bibasilar crackles. No wheezes, rhonchi, or rales ABDOMEN: Soft, nondistended. Nontender. Normoactive bowel sounds MUSCULOSKELETAL: 5/5 muscle strength testing in bilateral upper and lower extremities EXTREMITIES: No edema. Full and equal pulses bilaterally. NEUROLOGICAL: no focal neurological deficits. CN II-XII intact. Normal Cerebellar testing PSYCHIATRIC: Mood and affect appear appropriate LABORATORY DATA: See below. IMAGING: PORTABLE CHEST X-RAY: Sitting AP view. HISTORY: Trauma. COMPARISON CHEST X-RAY: October 14, 2017. FINDINGS: The left hemidiaphragm remains somewhat elevated. Prior sternotomy wires are seen along with EKG monitoring electrodes. There are some coarse increased lung markings in the right base suggesting atelectasis and/or infiltrate. Plate-like atelectasis is seen in the left base above the elevated left hemidiaphragm. The superior mediastinum is not widened. No acute bony abnormality is seen. IMPRESSION: Increased markings in the right base consistent with plate-like atelectasis versus infiltrate. Minimal plate-like atelectasis left base. Elevated left hemidiaphragm unchanged. Otherwise no acute disease. PROCEDURE INFORMATION: Exam: CT Head Without Contrast Exam date and time: 12/20/2019 3:14 PM Age: 84 years old Clinical indication: Altered mental status/memory loss; Confusion or disorientation; Additional info: Altered loc TECHNIQUE: Imaging protocol: Computed tomography of the head without contrast. Radiation optimization: All CT scans at this facility use at least one of these dose optimization techniques: automated exposure control; mA and/or kV adjustment per patient size (includes targeted exams where dose is matched to clinical indication); or iterative reconstruction. COMPARISON: CT Head without contrast 10/09/2017 2:41 PM FINDINGS: Brain: No acute intracerebral abnormality or injury. No acute infarct or intracerebral bleed. 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 [place] Stroke Program Early CT Score (ASPECTS score) = 10. Ventricles: Ventriculomegaly is somewhat prominent, out of keeping with the degree of cortical sulci enlargement, which could be secondary to predominant central cerebral atrophy or normal pressure hydrocephalus. I would recommend correlation clinically for signs of abnormal gait, urinary incontinence and dementia, which could be indicative of normal pressure hydrocephalus. Bones/joints: Unremarkable. No acute fracture. Sinuses: Visualized sinuses are unremarkable. No fluid levels. Mastoid air cells: Visualized mastoid air cells are well aerated. Soft tissues: Unremarkable. IMPRESSION: 1. No acute intracerebral abnormality or injury. No acute infarct or intracerebral bleed. 2. 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 3. Ventriculomegaly is somewhat prominent, out of keeping with the degree of cortical sulci enlargement, which could be secondary to predominant central cerebral atrophy or normal pressure hydrocephalus. I would recommend correlation clinically for signs of abnormal gait, urinary incontinence and dementia, which could be indicative of normal pressure hydrocephalus. 4. [place] Stroke Program Early CT Score (ASPECTS score) = 10. Electronically signed by: Christiano Miller On 12/20/2019 17:01:05 PM MICROBIOLOGY: Please see below. ASSESSMENT: Patient is an 84 year old male who presented to the [facility] ER with complaint of weakness/dizziness . PLAN: 1. Weakness/dizziness likely 2/2 Advanced Parkinsons disease -Patient has Parkinson disease and dementia. His CT imaging demonstrated ventriculomegaly which may be concerning for normal pressure hydrocephalus. He denies urinary incontinence. He mental status appears to be at his baseline. Neurology was contacted by ER physician. Recommendations for follow-up outpatient if NPH however is likely related to Parkinson's -PT/OT eval 2. Parkinson Dementia -Will continue patients Sinemet while inpatient 3. Severe Asymptomatic Hypertension -Likely secondary to medication non-compliance. Patient received PO Labetalol. He is currently normotensive. Will continue his home medications 4. Diabetes Mellitus Type 2 -ACHS with sliding scale coverage -Levemir 5 units at night 5. History of CAD -Continue Statin and Aspirin 6. DVT Prophylaxis -Heparin SQ Vital Signs Vital Signs Date Time Temp Pulse Resp B/P (MAP) Pulse Ox O2 Delivery O2 Flow Rate FiO2 12/20/19 17:15 75 20 136/63 (87) 12/20/19 15:58 99 12/20/19 13:09 96.4 Room Air Laboratory Data Labs 24H Laboratory Tests 2 12/20/19 14:06: Immature Granulocyte % (Auto) 0.3, Neutrophils (%) (Auto) 69.2H, Lymphocytes (%) (Auto) 12.9L, Monocytes (%) (Auto) 10.5H, Eosinophils (%) (Auto) 6.8H, Basophils (%) (Auto) 0.3, Neutrophils # (Auto) 5.2, Lymphocytes # (Auto) 1.0L, Monocytes # (Auto) 0.8, Eosinophils # (Auto) 0.5, Basophils # (Auto) 0.0, Nucleated Red Blood Cells % (auto) 0.0, Anion Gap 6L, Glomerular Filtration Rate 55.4, Calcium Level 9.1, Total Bilirubin 0.6, Direct Bilirubin 0.2, Aspartate Amino Transf (AST/SGOT) 16, Alanine Aminotransferase (ALT/SGPT) 7L, Alkaline Phosphatase 77, Total Creatine Kinase 81, Creatine Kinase MB 2.2, Creatine Kinase MB Relative Index 2.72, Troponin I < 0.02, Total Protein 7.1, Albumin 3.3, Albumin/Globulin Ratio 0.9, Thyroid Stimulating Hormone (TSH) 1.390 CBC/BMP Laboratory Tests 12/20/19 14:06 Home Medications Scheduled Amlodipine Besylate (Amlodipine Besylate) 5 Mg Tab, 5 MG PO DAILY Ascorbic Acid (Vitamin C) 500 Mg Tab, 500 MG PO DAILY Aspirin (Aspirin) 81 Mg Tab.chew, 81 MG PO DAILY Carbidopa/Levodopa (Carbidopa-Levo 25-100 mg Odt) 1 Each Tab.rapdis, 1 TAB PO QID Cyanocobalamin (Vitamin B-12) (Vitamin B-12) 1,000 Mcg Tab, 1,000 MCG PO DAILY Glipizide (Glipizide ER) 2.5 Mg Tab.er.24, 2.5 MG PO DAILY Insulin Aspart (Novolog) 100 Unit/1 Ml Cartridge, 4 UNITS SC QAM-PM Insulin Detemir (Levemir) 100 Unit/1 Ml Vial, 8 UNITS SC QPM Multivitamins (Thera M Plus Tablet) 1 Tab Tab, 1 TAB PO DAILY Rasagiline Mesylate (Azilect) 1 Mg Tablet, 0.5 MG PO DAILY Simvastatin (Simvastatin) 20 Mg Tablet, 20 MG PO QPM Sitagliptin Phosphate (Januvia) 25 Mg Tablet, 25 MG PO DAILY Scheduled PRN Docusate Sodium (Docusate Sodium) 100 Mg Capsule, 100 MG PO DAILYPRN PRN for CONSTIPATION Allergies Coded Allergies: No Known Allergies (Unverified , 12/20/19) A-FIB/CHADSVASC A-FIB History Current/History of A-Fib/PAF?: No GME ATTESTATION GME ATTESTATION My faculty preceptor for this patient encounter was physically present during the encounter and was fully available. All aspects of the patient interview, examination, medical decision making process, and medical care plan development were reviewed and approved by the faculty preceptor. The faculty preceptor is aware and concurs with the plan as stated in the body of this note and will attest to such by his/her cosignature. ATTENDING NOTE I reviewed and edited the note & agree with he findings as documented in Dr. Ewing. KENYATTA EWING DO Dec 20, 2019 18:18 JOSE CARLOS MD Dec 20, 2019 21:43
[2019-12-20] MEDS ORDERED: ASPI81CH33 PO (18:35)
[2019-12-20] MEDS ORDERED: CARB25TA18 PO (18:37)
[2019-12-20] MEDS ORDERED: GLIP2.5T6 PO (18:37)
[2019-12-20] MEDS ORDERED: AZIL1TAB PO (18:38)
[2019-12-20] MEDS ORDERED: SIMV20TA22 PO (18:38)
[2019-12-20] MEDS ORDERED: JANU25TA PO (18:39)
[2019-12-20] MEDS ORDERED: amLODIPine 10 MG TAB PO ONE (19:00)
[2019-12-20] MEDS ORDERED: DOCUSATE SODIUM 100 MG CAP PO PRN (19:00)
[2019-12-20 20:00] VITALS: BP 160/78
[2019-12-20] MEDS: HumaLOG INSULIN (NovoLOG) PER UNIT SC SCH (21:00)
[2019-12-20] MEDS: SINEMET 25-100 MG TAB PO SCH (21:37)
[2019-12-20] MEDS: SIMVASTATIN 20 MG TAB PO SCH (21:37)
[2019-12-20] MEDS: HEPARIN SOD (PORCINE) 5000UNITS/ML VIAL (J1644 PER 1000UNITS) SQ SCH (21:38)
--- NOTE | 2019-12-20 21:43 | ECGEPIP ---
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
[2019-12-21] MEDS: HEPARIN SOD (PORCINE) 5000UNITS/ML VIAL (J1644 PER 1000UNITS) SQ SCH ×3 (05:06→22:09)
[2019-12-21 06:00] VITALS: BP 162/70
[2019-12-21 06:33] LABS: HEMATOCRIT 34.9 % (42.0-52.0); HEMOGLOBIN 11.4 g/dl (13.5-17.5); MEAN CORPUSCULAR HEMOGLOBIN 31.1 pg (27.0-33.0); MEAN CORPUSCULAR HGB CONC 32.7 g/dl (32.0-36.5); MEAN CORPUSCULAR VOLUME 95.1 fl (80.0-96.0); PLATELET COUNT, AUTOMATED 159 10^3/uL (150-450); RED BLOOD COUNT 3.67 10^6/uL (4.30-6.10); WHITE BLOOD COUNT 7.9 10^3/uL (4.0-10.0)
[2019-12-21 06:56] LABS: CALCIUM LEVEL 8.7 MG/DL (8.8-10.2); CREATININE FOR GFR 1.25 MG/DL (0.70-1.30); GLOMERULAR FILTRATION RATE 58.4 (>35); POTASSIUM SERUM 4.4 MEQ/L (3.5-5.1)
[2019-12-21] MEDS: HumaLOG INSULIN (NovoLOG) PER UNIT SC SCH ×4 (07:30→21:00)
[2019-12-21] MEDS: SINEMET 25-100 MG TAB PO SCH ×4 (08:35→22:09)
[2019-12-21] MEDS: MULTIVITAMINS/MINERALS THERAP 1 TAB PO SCH (08:35)
[2019-12-21] MEDS: ASPIRIN 81 MG CHEW TABLET PO SCH (08:35)
[2019-12-21] MEDS: CYANOCOBALAMIN 500 MCG TAB PO SCH (08:35)
[2019-12-21] MEDS: amLODIPine 5 MG TAB PO SCH (08:35)
[2019-12-21] MEDS ORDERED: PILL CUTTER 1 EACH XX PRN (10:45)
[2019-12-21] MEDS: RASAGILINE PO SCH (11:13)
[2019-12-21 14:00] VITALS: BP 140/70
--- NOTE | 2019-12-21 17:37 | IPNPDOC ---
Date Seen The patient was seen on 12/21/19. Progress Note SUBJECTIVE: Patient was seen and examined this morning. He currently has no complaints. He denies dizziness or weakness. He denies shortness of breath or chest pain OBJECTIVE PHYSICAL EXAMINATION: VITAL SIGNS: Please see below. GENERAL APPEARANCE: Awake, alert, and oriented. Answers questions appropriately. Poor memory. Appears in no acute distress. Sitting in chair comfortably HEENT: Atraumatic, normocephalic. Eyes are nonicteric. Trachea is midline. Mucous membranes are pink and moist CARDIOVASCULAR: Normal S1, S2. Regular rate and rhythm. No clicks rubs or murmurs. RESPIRATORY: Clear vesicular breath sounds bilaterally with bibasilar crackles. No wheezes, rhonchi, or rales ABDOMEN: Soft, nondistended. Nontender. Normoactive bowel sounds MUSCULOSKELETAL: 5/5 muscle strength testing in bilateral upper and lower extremities EXTREMITIES: No edema. Full and equal pulses bilaterally. NEUROLOGICAL: no focal neurological deficits. CN II-XII intact. PSYCHIATRIC: Mood and affect appear appropriate LABORATORY DATA, IMAGING STUDIES, MICROBIOLOGY: Please see below. DVT prophylaxis ordered?: Heparin SQ ASSESSMENT AND PLAN: Patient is an 84 year old male with a past medical history of Parkinsons Dementia with gait disturbance who presented to [facility] with complaint of dizziness and weakness . PROBLEMS: 1.Weakness/dizziness likely 2/2 Advanced Parkinsons disease -Patient has Parkinson disease and dementia. His CT imaging demonstrated ventriculomegaly which may be concerning for normal pressure hydrocephalus. He denies urinary incontinence. He mental status appears to be at his baseline. Neurology was contacted by ER physician. Recommendations for follow-up outpatient if NPH however is likely related to Parkinson's -Patient has worked with PT. He is not safe for discharge home. He is a potential placement. He currently lives with his who cares for him and he lps him with ADLs. Question as to whether she will be able to continue to care for him without assistance 2. Parkinson Dementia -Will continue patients Sinemet while inpatient 3. Severe Asymptomatic Hypertension -Likely secondary to medication non-compliance. Patient received PO Labetalol in ER -He has been normotensive. Will continue home medications 4. Diabetes Mellitus Type 2 -ACHS with sliding scale coverage -Levemir 5 units at night 5. History of CAD -Continue Statin and Aspirin 6. DVT Prophylaxis -Heparin SQ DISPOSITION: Continue to work with PT. Currently not safe for discharge. Potential placement VS, I&O, 24H, Fishbone Vital Signs/I&O Vital Signs Date Time Temp Pulse Resp B/P (MAP) Pulse Ox O2 Delivery O2 Flow Rate FiO2 12/21/19 08:35 87 144/74 12/21/19 06:00 98.0 17 98 Room Air I&O- Last 24 Hours up to 6 AM 12/21/19 05:59 Intake Total 0 ml Output Total 1350 ml Balance -1350 ml Laboratory Data 24H LABS Laboratory Tests 2 12/20/19 20:51: Bedside Glucose (Misc Panel) 125H 12/21/19 06:06: Nucleated Red Blood Cells % (auto) 0.0, Anion Gap 6L, Glomerular Filtration Rate 58.4, Calcium Level 8.7L 12/21/19 11:41: Bedside Glucose (Misc Panel) 124H 12/21/19 16:46: Bedside Glucose (Misc Panel) 125H CBC/BMP Laboratory Tests 12/21/19 06:06 GME ATTESTATION GME ATTESTATION My faculty preceptor for this patient encounter was physically present during the encounter and was fully available. All aspects of the patient interview, examination, medical decision making process, and medical care plan development were reviewed and approved by the faculty preceptor. The faculty preceptor is aware and concurs with the plan as stated in the body of this note and will attest to such by his/her cosignature. ATTENDING NOTE PT WAS SEEN AND EXAMINED BY ME, AGREE WITH THE ABOVE ASSESSMENT AND PLAN. KENYATTA EWING DO Dec 21, 2019 17:36 NIMCO ABREU MD Dec 24, 2019 14:16
[2019-12-21 22:00] VITALS: BP 122/64
[2019-12-21] MEDS: SIMVASTATIN 20 MG TAB PO SCH (22:09)
[2019-12-22] MEDS: HEPARIN SOD (PORCINE) 5000UNITS/ML VIAL (J1644 PER 1000UNITS) SQ SCH ×3 (05:42→21:18)
[2019-12-22 06:00] VITALS: BP 158/80
[2019-12-22 06:58] LABS: CALCIUM LEVEL 8.6 MG/DL (8.8-10.2); CREATININE FOR GFR 1.44 MG/DL (0.70-1.30); GLOMERULAR FILTRATION RATE 49.6 (>35); POTASSIUM SERUM 4.5 MEQ/L (3.5-5.1)
[2019-12-22] MEDS: HumaLOG INSULIN (NovoLOG) PER UNIT SC SCH ×4 (07:59→20:42)
[2019-12-22] MEDS: MULTIVITAMINS/MINERALS THERAP 1 TAB PO SCH (08:02)
[2019-12-22] MEDS: RASAGILINE PO SCH (08:02)
[2019-12-22] MEDS: ASPIRIN 81 MG CHEW TABLET PO SCH (08:02)
[2019-12-22] MEDS: SINEMET 25-100 MG TAB PO SCH ×4 (08:04→21:18)
[2019-12-22] MEDS: CYANOCOBALAMIN 500 MCG TAB PO SCH (08:04)
[2019-12-22] MEDS: amLODIPine 5 MG TAB PO SCH (08:06)
--- NOTE | 2019-12-22 12:32 | IPNPDOC ---
Text Note Date of Service The patient was seen on 12/22/19. NOTE SUBJECTIVE: Patient was seen and examined this morning. He denies dizziness or weakness. He denies shortness of breath or chest pain OBJECTIVE PHYSICAL EXAMINATION: VITAL SIGNS: Please see below. GENERAL APPEARANCE: Awake, alert, and oriented. Answers questions appropriately. Poor memory. Appears in no acute distress. Sitting in chair comfortably HEENT: Atraumatic, normocephalic. Eyes are nonicteric. Trachea is midline. Mucous membranes are pink and moist CARDIOVASCULAR: Normal S1, S2. Regular rate and rhythm. No clicks rubs or murmurs. RESPIRATORY: Clear vesicular breath sounds bilaterally with bibasilar crackles. No wheezes, rhonchi, or rales ABDOMEN: Soft, nondistended. Nontender. Normoactive bowel sounds MUSCULOSKELETAL: 5/5 muscle strength testing in bilateral upper and lower extremities EXTREMITIES: No edema. Full and equal pulses bilaterally. NEUROLOGICAL: no focal neurological deficits. CN II-XII intact. PSYCHIATRIC: Mood and affect appear appropriate ASSESSMENT AND PLAN: Patient is an 84 year old male with a past medical history of Parkinsons Dementia with gait disturbance who presented to [facility] with complaint of dizziness and weakness . 1.Weakness/dizziness likely 2/2 Advanced Parkinsons disease : Patient has Parkinson disease and dementia. His CT imaging demonstrated ventriculomegaly which may be concerning for normal pressure hydrocephalus. He denies urinary incontinence. He mental status appears to be at his baseline. Neurology was contacted by ER physician. Recommendations for follow-up outpatient if NPH however is likely related to Parkinson's . Patient has worked with PT. He is not safe for discharge home. He is a potential placement. He currently lives with his who cares for him and helps him with ADLs. Question as to whether she will be able to continue to care for him without assistance 2. Parkinson Dementia : Will continue patients Sinemet while inpatient 3. Severe Asymptomatic Hypertension: Likely secondary to medication non- compliance. Patient received PO Labetalol in ER . He has been normotensive. Will continue home medications 4. Diabetes Mellitus Type 2 : ACHS with sliding scale coverage . Levemir 5 units at night 5. History of CAD : Continue Statin and Aspirin 6. DVT Prophylaxis : Heparin SQ DISPOSITION: Continue to work with PT. Currently not safe for discharge. Potential placement VS,Fishbone, I+O VS, Fishbone, I+O Laboratory Tests 12/22/19 05:41 Vital Signs Date Time Temp Pulse Resp B/P (MAP) Pulse Ox O2 Delivery O2 Flow Rate FiO2 12/22/19 08:06 95 114/72 12/22/19 06:00 98.8 16 98 Room Air I&O- Last 24 Hours up to 6 AM 12/22/19 06:00 Intake Total 1375 ml Output Total 1200 ml Balance 175 ml NIMCO ABREU MD Dec 22, 2019 12:32
[2019-12-22 14:00] VITALS: BP 151/71
[2019-12-22] MEDS: SIMVASTATIN 20 MG TAB PO SCH (21:18)
[2019-12-22 22:00] VITALS: BP 117/71
[2019-12-23] MEDS: HEPARIN SOD (PORCINE) 5000UNITS/ML VIAL (J1644 PER 1000UNITS) SQ SCH (05:11)
[2019-12-23 06:00] VITALS: BP 121/66
[2019-12-23 06:39] LABS: CALCIUM LEVEL 8.6 MG/DL (8.8-10.2); CREATININE FOR GFR 1.45 MG/DL (0.70-1.30); GLOMERULAR FILTRATION RATE 49.2 (>35); POTASSIUM SERUM 4.2 MEQ/L (3.5-5.1)
[2019-12-23] MEDS: HumaLOG INSULIN (NovoLOG) PER UNIT SC SCH (08:30)
[2019-12-23] MEDS: ASPIRIN 81 MG CHEW TABLET PO SCH (08:30)
[2019-12-23] MEDS: RASAGILINE PO SCH (08:30)
[2019-12-23] MEDS: SINEMET 25-100 MG TAB PO SCH ×2 (08:30→12:23)
[2019-12-23] MEDS: CYANOCOBALAMIN 500 MCG TAB PO SCH (08:30)
[2019-12-23] MEDS: MULTIVITAMINS/MINERALS THERAP 1 TAB PO SCH (08:30)
[2019-12-23 08:31] VITALS: BP 118/68
[2019-12-23] MEDS: amLODIPine 5 MG TAB PO SCH (08:31)
--- NOTE | 2019-12-23 14:57 | DS.PDOC ---
Discharge Summary General Date of Admission Dec 20, 2019 at 17:27 Date of Discharge 12/23/19 Discharge Summary CHIEF COMPLAINT: Weakness Final diagonosis: Dementia Fall HISTORY OF PRESENT ILLNESS: Patient is an 84 year old male with a long standing history of Parkinsons Dementia who presented to the [facility] ER with complaint of weakness. The patient himself has dementia and is unable to provide a complete history. However he had reportedly developed weakness earlier in the day. He has not fallen. He denies and there has been no report of loss of consciousness. The patient states that he was dizzy earlier however that has resolved. He denies any urinary incontinence. He was afebrile and labs were otherwise unremarkable. He did received CT imaging of the head which demonstrated ventriculomegaly. Russell hampton has Parkinson disease and dementia. His CT imaging demonstrated ventriculomegaly which may be concerning for normal pressure hydrocephalus. He denies urinary incontinence. He mental status appears to be at his baseline. Neurology was contacted by ER physician. Recommendations for follow-up out patient if NPH however is likely related to Parkinson's . Patient has worked with PT. He is not safe for discharge home. He is discharged to [facility] [place] . He was living with his who cares for him and helps him with ADLs. PHYSICAL EXAMINATION: VITAL SIGNS: Please see below. GENERAL APPEARANCE: Awake, alert, and oriented. Answers questions appropriately. Poor memory. Appears in no acute distress. Sitting in chair comfortably HEENT: Atraumatic, normocephalic. Eyes are nonicteric. Trachea is midline. Mucous membranes are pink and moist CARDIOVASCULAR: Normal S1, S2. Regular rate and rhythm. No clicks rubs or murmurs. RESPIRATORY: Clear vesicular breath sounds bilaterally with bibasilar crackles. No wheezes, rhonchi, or rales ABDOMEN: Soft, nondistended. Nontender. Normoactive bowel sounds MUSCULOSKELETAL: 5/5 muscle strength testing in bilateral upper and lower extremities EXTREMITIES: No edema. Full and equal pulses bilaterally. NEUROLOGICAL: no focal neurological deficits. CN II-XII intact. PSYCHIATRIC: Mood and affect appear appropriate Medicatations. As per discharge reconciliation medication list Activity as tolerated Diet. 2 g sodium diet Follow-up appointments. PCP in 1 week Condition on discharge. Patient is medically optimized for discharge Discharge disposition: Home Total time spent on this discharge including coordination of care, review of chart documentation and actual contact is around 35 minutes Vital Signs/I&Os Vital Signs Date Time Temp Pulse Resp B/P (MAP) Pulse Ox O2 Delivery O2 Flow Rate FiO2 12/23/19 08:31 104 118/68 12/23/19 06:00 96.7 17 95 Room Air I&O- Last 24 Hours up to 6 AM 12/23/19 06:00 Intake Total 815 ml Output Total 250 ml Balance 565 ml Laboratory Data Labs 24H Laboratory Tests 2 12/22/19 16:59: Bedside Glucose (Misc Panel) 113H 12/22/19 20:34: Bedside Glucose (Misc Panel) 111H 12/23/19 05:54: Anion Gap 7L, Glomerular Filtration Rate 49.2, Calcium Level 8.6L 12/23/19 12:01: Bedside Glucose (Misc Panel) 215H CBC/BMP Laboratory Tests 12/23/19 05:54 FSBS Laboratory Tests Test 12/22/19 16:59 12/22/19 20:34 12/23/19 12:01 Range/Units Bedside Glucose (Misc Panel) 113 111 215 83-110 MG/DL Microbiology Microbiology 12/23/19 Respiratory Virus Panel (PCR) (MAYI) - Final, Complete Discharge Medications Scheduled Amlodipine Besylate (Amlodipine Besylate) 5 Mg Tab, 5 MG PO DAILY, (Reported) Ascorbic Acid (Vitamin C) 500 Mg Tab, 500 MG PO DAILY, (Reported) Aspirin (Aspirin) 81 Mg Tab.chew, 81 MG PO DAILY, (Reported) Carbidopa/Levodopa (Carbidopa-Levo 25-100 mg Odt) 1 Each Tab.rapdis, 1 TAB PO QID, (Reported) Cyanocobalamin (Vitamin B-12) (Vitamin B-12) 1,000 Mcg Tab, 1,000 MCG PO DAILY, (Reported) Glipizide (Glipizide ER) 2.5 Mg Tab.er.24, 2.5 MG PO DAILY, (Reported) Insulin Aspart (Novolog) 100 Unit/1 Ml Cartridge, 4 UNITS SC QAM-PM, (Reported) Insulin Detemir (Levemir) 100 Unit/1 Ml Vial, 8 UNITS SC QPM, (Reported) Multivitamins (Thera M Plus Tablet) 1 Tab Tab, 1 TAB PO DAILY, (Reported) Rasagiline Mesylate (Azilect) 1 Mg Tablet, 0.5 MG PO DAILY, (Reported) Simvastatin (Simvastatin) 20 Mg Tablet, 20 MG PO QPM, (Reported) Sitagliptin Phosphate (Januvia) 25 Mg Tablet, 25 MG PO DAILY, (Reported) Scheduled PRN Docusate Sodium (Docusate Sodium) 100 Mg Capsule, 100 MG PO DAILYPRN PRN for CONSTIPATION, (Reported) Allergies Coded Allergies: No Known Allergies (Unverified , 12/20/19) NIMCO ABREU MD Dec 23, 2019 14:57
== END 2019-12-23 13:15 | DRG 57 ==
LOC: M ED 12:53 → M ED INP 17:27 → ENRESERV 18:21 → M MSPAV 19:42
PROVIDERS: ADMIT Internal Medicine; ATTEND Internal Medicine
DX: G31.83 Neurocognitive disorder with Lewy bodies (principal); F02.80 Dementia in other diseases classified elsewhere, unspecified severity, without behavioral disturbance, psychotic disturbance, mood disturbance, and anxiety; N18.3 Chronic kidney disease, stage 3 (moderate); I12.9 Hypertensive chronic kidney disease with stage 1 through stage 4 chronic kidney disease, or unspecified chronic kidney disease; E11.22 Type 2 diabetes mellitus with diabetic chronic kidney disease; E78.5 Hyperlipidemia, unspecified; I25.10 Atherosclerotic heart disease of native coronary artery without angina pectoris; R53.1 Weakness; Z95.1 Presence of aortocoronary bypass graft; Z79.4 Long term (current) use of insulin; Z79.82 Long term (current) use of aspirin; Z79.899 Other long term (current) drug therapy; Z11.59 Encounter for screening for other viral diseases

== ENCOUNTER → 2020-01-06 | Outpatient (CLI) | payer MEDICARE, OTHER ==
[~2020-01-06] MED LIST changes: +ACET-908 PO; +ASCO500T PO; +ASPI81CH33 PO; +ATOR1TAB21 PO; +AZIL0.5T PO; +AZIL1TAB PO; +B-12100T2 PO; +BASA100I SC; +DOCU100C16 PO; +DULC10SU2 PR; +FLEEENE12 PR; +GLIP2.5T6 PO; +GLIP5TAB8 PO; +INSUDET SC; +JANU25TA PO; +MOM30SS PO; +NOVOINJ SC; +REFR0.5D8 OU; +SCOP1PAT2 TOP; +SIMV20TA22 PO; +SINE25TA5 PO
--- NOTE | 2020-01-06 16:25 | REP ---
Examination Requested: Cookie Swallow Reason For Exam: Dysphasia The procedure was performed by TANIA Renner, under the direct supervision of Dr. Mitchell. The procedure was performed with Maia Encarnacion from speech pathology present. 5 ml aliquots of thin, pudding, nectar and honey consistency barium was administered. Silent aspiration was visualized with all consistency barium with mixed with the patient's secretions. The detailed report of this examination will be provided by speech pathology. 3.0 minutes of fluoroscopy time was utilized for this procedure. Reviewed by TANIA Elizalde 01/06/2020 02:56 P Electronically Signed by Nimesh Mitchell MD 01/06/2020 04:15 P
== END ==
LOC: M ST 12:51
PROVIDERS: ATTEND Nurse Practitioner Family
DX: R13.10 Dysphagia, unspecified (principal)

== ENCOUNTER 2020-01-21 18:59 | Emergency (ER) | payer MEDICARE, OTHER ==
[~2020-01-21] VITALS: Ht 172.7 cm; Wt 64.0 kg
[~2020-01-21 18:59] MED LIST changes: -ACET-908 PO; +AMLO1TAB24 PO; -AMLO5TAB6 PO; -ATOR1TAB21 PO; -BASA100I SC; -DULC10SU2 PR; -FLEEENE12 PR; -GLIP5TAB8 PO; -MOM30SS PO; -REFR0.5D8 OU; -SCOP1PAT2 TOP; -SINE25TA5 PO
[2020-01-21] MEDS ORDERED: ATOR1TAB21 PO (19:35)
[2020-01-21] MEDS ORDERED: SINE25TA5 PO (19:35)
[2020-01-21] MEDS ORDERED: GLIP5TAB8 PO (19:35)
[2020-01-21] MEDS ORDERED: DULC10SU2 PR (19:40)
[2020-01-21] MEDS ORDERED: ACET-908 PO (19:40)
[2020-01-21] MEDS ORDERED: SCOP1PAT2 TOP (19:40)
[2020-01-21] MEDS ORDERED: MOM30SS PO (19:40)
[2020-01-21] MEDS ORDERED: FLEEENE12 PR (19:40)
[2020-01-21] MEDS ORDERED: REFR0.5D8 OU (19:40)
[2020-01-21] MEDS ORDERED: BASA100I SC (19:42)
[2020-01-21 19:52] LABS: INR 1.08; PARTIAL THROMBOPLASTIN TIME 28.7 SECONDS (25.0-38.4); PROTHROMBIN TIME 13.7 SECONDS (11.8-14.0)
[2020-01-21 20:07] LABS: BLOOD UREA NITROGEN 33 MG/DL (7-18); CALCIUM LEVEL 8.7 MG/DL (8.8-10.2); CARBON DIOXIDE LEVEL 31 MEQ/L (21-32); CHLORIDE LEVEL 101 MEQ/L (98-107); CK-MB VALUE MASS 2.7 NG/ML (<3.6); CPK CREATINE PHOSPHOKINASE 71 U/L (39-308); CREATININE FOR GFR 1.47 MG/DL (0.70-1.30); GLOMERULAR FILTRATION RATE 48.5 (>35); GLUCOSE, FASTING 162 MG/DL (70-100); SODIUM LEVEL 140 MEQ/L (136-145); TROPONIN I < 0.02 NG/ML (< 0.10)
[2020-01-21 20:27] LABS: BASO % 0.3 % (0.0-1.0); EOS # 0.5 10^3/uL (0.0-0.5); EOS % 6.2 % (0.0-3.0); HEMATOCRIT 33.7 % (42.0-52.0); LYMPH # 0.6 10^3/uL (1.5-5.0); LYMPH % 8.6 % (24.0-44.0); MEAN CORPUSCULAR HEMOGLOBIN 30.9 pg (27.0-33.0); MEAN CORPUSCULAR HGB CONC 32.6 g/dl (32.0-36.5); MEAN CORPUSCULAR VOLUME 94.7 fl (80.0-96.0); MONO # 0.7 10^3/uL (0.0-0.8); MONO % 8.9 % (0.0-5.0); NEUTROPHILS # 5.5 10^3/uL (1.5-8.5); NEUTROPHILS % 75.6 % (36.0-66.0); PLATELET COUNT, AUTOMATED 161 10^3/uL (150-450); RED BLOOD COUNT 3.56 10^6/uL (4.30-6.10); WHITE BLOOD COUNT 7.3 10^3/uL (4.0-10.0)
[2020-01-21 20:33] VITALS: BP 134/65
--- NOTE | 2020-01-22 09:29 | REP ---
REASON FOR EXAM: Admission chest followup from 12/20/2019. The technique utilized in obtaining the radiograph has magnified the cardiac silhouette and accentuated the interstitial markings. There is no significant change from the prior exam. Once again, the cardiac silhouette is magnified by technique. Mild cardiomegaly is suspected. There is interstitial fibrotic change, status quo. There are no new patchy opacities or pleural effusions. There is no change in the osseous structures. Note is again made of previous median sternotomy. IMPRESSION: No significant change. Electronically Signed by Adam Harrell DO 01/22/2020 09:56 A
--- NOTE | 2020-01-22 09:45 | ECGEPIP ---
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
== END 2020-01-21 21:13 | disposition home or self-care (01) ==
LOC: EDBD 18:59 → M ED 18:59
DX: G20 Parkinson's disease (principal); Z74.09 Other reduced mobility; E11.9 Type 2 diabetes mellitus without complications; I10 Essential (primary) hypertension; N28.9 Disorder of kidney and ureter, unspecified; F03.90 Unspecified dementia, unspecified severity, without behavioral disturbance, psychotic disturbance, mood disturbance, and anxiety; E78.5 Hyperlipidemia, unspecified; I25.10 Atherosclerotic heart disease of native coronary artery without angina pectoris; Z95.1 Presence of aortocoronary bypass graft; Z79.899 Other long term (current) drug therapy; Z79.82 Long term (current) use of aspirin; Z79.4 Long term (current) use of insulin

== ENCOUNTER 2020-01-26 14:55 | Inpatient (IN) | payer MEDICARE, OTHER ==
[~2020-01-26 14:55] MED LIST changes: +ACET-908 PO; +ATOR1TAB21 PO; +BASA100I SC; +DULC10SU2 PR; +FLEEENE12 PR; +GLIP5TAB8 PO; +MOM30SS PO; +REFR0.5D8 OU; +SCOP1PAT2 TOP; +SINE25TA5 PO
--- NOTE | 2020-01-26 15:53 | REP ---
CT study of the cervical spine without contrast: History: Lethargy after a fall. Comparison CT study October 09, 2017. Technique: Helical scanning is acquired and overlapping 2 mm high resolution axial images were generated and reviewed at bone and soft tissue window settings. Coronal and sagittal multiplanar re-formations images are generated. CT findings: There is no evidence of cervical spine element fracture. No skull base fracture is seen. Cervical vertebral body heights are preserved. Alignment is normal. Facet joints are normally aligned bilaterally at each cervical level on multiplanar re-formations images. There is no evidence of intraspinal or paraspinal hematoma. No extra vertebral abnormality is seen. There are fairly advanced degenerative spondylosis changes. There is evidence of partial fusion particular involving the facet joints at the C2-3 level bilaterally. Moderate osteoarthritic facet disease is seen. Degenerative 3 mm spondylolisthesis is seen at C4-5 and C5-6 unchanged . Vascular calcification is noted. Impression: Fairly advanced degenerative spondylosis changes stable from October 09, 2017. Otherwise negative CT study of the cervical spine without contrast. No fracture seen. Electronically Signed by Nimesh Mitchell MD 01/26/2020 03:44 P
--- NOTE | 2020-01-26 15:57 | REP ---
Clinical: Altered mental status. Comparison: 01/21/2020. Findings: Mediastinum and cardiac silhouette are stable with evidence of prior sternotomy and CABG again noted. Lung ramirez demonstrate diffuse chronic interstitial changes. No obvious focal consolidation, effusion, or pneumothorax. Skeletal structures demonstrate osteopenia and degenerative changes. Impression: Chronic stable changes. No obvious acute cardiopulmonary process. Electronically Signed by Paddy Araiza MD 01/26/2020 03:49 P
[2020-01-26 16:13] LABS: BASO % 0.3 % (0.0-1.0); EOS # 0.3 10^3/uL (0.0-0.5); EOS % 3.9 % (0.0-3.0); HEMATOCRIT 32.1 % (42.0-52.0); HEMOGLOBIN 10.5 g/dl (13.5-17.5); LYMPH # 0.9 10^3/uL (1.5-5.0); LYMPH % 11.8 % (24.0-44.0); MEAN CORPUSCULAR HEMOGLOBIN 31.2 pg (27.0-33.0); MEAN CORPUSCULAR HGB CONC 32.7 g/dl (32.0-36.5); MEAN CORPUSCULAR VOLUME 95.3 fl (80.0-96.0); MONO # 0.8 10^3/uL (0.0-0.8); MONO % 11.3 % (0.0-5.0); NEUTROPHILS # 5.3 10^3/uL (1.5-8.5); NEUTROPHILS % 72.4 % (36.0-66.0); PLATELET COUNT, AUTOMATED 148 10^3/uL (150-450); RED BLOOD COUNT 3.37 10^6/uL (4.30-6.10); WHITE BLOOD COUNT 7.4 10^3/uL (4.0-10.0)
--- NOTE | 2020-01-26 16:22 | REP ---
CT BRAIN WITHOUT CONTRAST: HISTORY: Lethargy after a fall. Comparison head CT study December 20, 2019. FINDINGS: Preliminary digital tinner automatic radiograph is unremarkable. On bone window settings there is no evidence of skull fracture or bony destructive lesion. Vascular calcification is again observed in the distal vertebral and distal carotid arteries region. Visualized paranasal sinuses are clear. No large scalp hematoma is evident. On soft tissue window settings, there is moderate generalized volume loss again noted. There is no evidence of intracranial hemorrhage. No extra-axial fluid collection is seen. No mass or midline shift is observed. IMPRESSION: Vascular calcification and diffuse atrophy. No acute intracranial abnormality. Electronically Signed by Nimesh Mitchell MD 01/26/2020 04:41 P
[2020-01-26 16:51] LABS: ALBUMIN 2.9 GM/DL (3.2-5.2); ALT/SGPT < 6 U/L (12-78); BILIRUBIN,DIRECT 0.2 MG/DL (0.0-0.2); BILIRUBIN,TOTAL 0.7 MG/DL (0.2-1.0); TOTAL PROTEIN 6.1 GM/DL (6.4-8.2)
[2020-01-26] MEDS ORDERED: ACETAMINOPHEN TAB 650MG DOSE (2X325MG) PO PRN (18:30)
[2020-01-26] MEDS: HEPARIN SOD (PORCINE) 5000UNITS/ML 1ML VIAL/SYRINGE SC SCH (20:28)
--- NOTE | 2020-01-26 23:30 | HPEPDOC ---
[facility] Medical History & Physical Date of Admission Jan 26, 2020 Date of Service: Jan 26, 2020 Primary Care Physician: A History and Physical CHIEF COMPLAINT: AMS HISTORY OF PRESENT ILLNESS: Pt is a 84y/o Parkinson's vs. Lewy Body Dementia, CKD stage III, HTN, DMII, HLD, CAD s/p CABG who presents for AMS. Pt is altered/confused at time of interview therefore history taken from report and notes Per report, Pt is from [facility] with increasing lethargy and confusion with fall at unclear time. Per report pt was relatively alert and functional. Unable to obtain ROS due to pt mental status (confusion). PAST MEDICAL HISTORY: 1. Parkinson's vs Lewy Body Dementia 2. CKD Stage III 3. Hypertension 4. Diabetes Mellitus Type 2 5. Hyperlipidemia 6. CAD s/p CABG PAST SURGICAL HISTORY: 1. CABG 2. Appendectomy 3. Herniography 4. Tonsillectomy 5. Polyp Removal SOCIAL HISTORY: Patient lives at [facility] home. Ambulates with a cane at baseline. No alcohol use. No tobacco use. No IV or illicit drug use FAMILY HISTORY: Unable to obtain due to pt mental status. ALLERGIES: Please see below. REVIEW OF SYSTEMS: Unable to obtain due to pt mental status. HOME MEDICATIONS: Please see below. PHYSICAL EXAMINATION: VITAL SIGNS: see below. GENERAL APPEARANCE: confused, agitated male laying in bed with sitter HEENT: PER and minimally reactive, OP with dry MM and fissure tongue CARDIOVASCULAR: tachy but sounds regular, no mrg appreciated LUNGS: CTA b/l no w/r/r ABDOMEN: soft, NT, ND EXTREMITIES: moving all extremities, no edema, intact distal pulses NEUROLOGICAL: opens eyes to voice, strength grossly intact, not following commands PSYCHIATRIC: confused, agitated, minimally verbal, LABORATORY DATA: See below. IMAGING: Head CT (personally reviewed): IMPRESSION: Vascular calcification and diffuse atrophy. No acute intracranial abnormality. CXR (personally reviewed): Impression: Chronic stable changes. No obvious acute cardiopulmonary process. MICROBIOLOGY: Please see below. ASSESSMENT: Pt is a 84y/o Parkinson's vs. Lewy Body Dementia, CKD stage III, HTN, DMII, HLD, CAD s/p CABG who presents for AMS. Clinically pt appears to be dry therefore dehydration may be playing a role in pt's confusion. Pt also with evidence of UTI on UA therefore will treat as also likely playing a role in pt's confusion. . PLAN: #AMS -admit to observation with tele -etiology likely UTI with associated dehydration -IVFs to treat dehydration -CTX to treat UTI -monitor metal status #UTI -CTX -f/u urine culture #parkinson's vs. Lewy Body -cont. to monitor -cont. home meds #CKD stage III -avoid nephrotoxic medications -trend Cr #DMII -ISS -FSG -ADA/cardiac diet #HLD -cont. home meds #CAD -cont home meds DVT PPX: heparin Disposition: pending clinical improvement Vital Signs Vital Signs Date Time Temp Pulse Resp B/P (MAP) Pulse Ox O2 Delivery O2 Flow Rate FiO2 01/26/20 22:16 89 138/65 (89) 95 01/26/20 18:44 97.1 12 Room Air Laboratory Data Labs 24H Laboratory Tests 2 01/26/20 15:59: POC Troponin I (Misc) 0.01 01/26/20 16:00: Immature Granulocyte % (Auto) 0.3, Neutrophils (%) (Auto) 72.4H, Lymphocytes (%) (Auto) 11.8L, Monocytes (%) (Auto) 11.3H, Eosinophils (%) (Auto) 3.9H, Basophils (%) (Auto) 0.3, Neutrophils # (Auto) 5.3, Lymphocytes # (Auto) 0.9L, Monocytes # (Auto) 0.8, Eosinophils # (Auto) 0.3, Basophils # (Auto) 0.0, Nucleated Red Blood Cells % (auto) 0.0, Ammonia 16 01/26/20 16:01: Urine Color YELLOW, Urine Appearance CLEAR, Urine pH 8.0, Urine Specific [place] 1.008, Urine Protein NEGATIVE, Urine Glucose (UA) NEGATIVE, Urine Ketones NEGATIVE, Urine Blood NEGATIVE, Urine Nitrite NEGATIVE, Urine Bilirubin NEGATIVE, Urine Urobilinogen 0.2, Urine Leukocyte Esterase TRACEH, Urine WBC (Auto) 5H, Urine RBC (Auto) 7H, Urine Hyaline Casts (Auto) 0, Urine Bacteria (Auto) 1+H, Urine Squamous Epithelial Cells 0, Urine Mucus (Auto) SMALL, Urine Sperm (Auto) , POC Glucose (Misc Panel) 86, POC Sodium (Misc Panel) 141, POC Potassium (Misc Panel) 4.3, POC Chloride (Misc Panel) 103, POC Total CO2 (Misc Panel) 27.0, POC Blood Urea Nitrogen (Misc Panel 23, POC Ionized Calcium (Misc Panel) 4.8, POC Creatinine (Misc Panel) 1.3, POC Hematocrit (Misc Panel) 30.0L, Total Bilirubin 0.7, Direct Bilirubin 0.2, Aspartate Amino Transf (AST/SGOT) 19, Alanine Aminotransferase (ALT/SGPT) < 6L, Alkaline Phosphatase 74, Total Protein 6.1L, Albumin 2.9L, Albumin/Globulin Ratio 0.9, Thyroid Stimulating Hormone (TSH) 1.670 01/26/20 20:31: Bedside Glucose (Misc Panel) 72L CBC/BMP Laboratory Tests 01/26/20 16:00 Microbiology Microbiology 01/26/20 Urine Culture, Received Pending Home Medications Scheduled Amlodipine Besylate (Amlodipine Besylate) 5 Mg Tab, 5 MG PO DAILY Ascorbic Acid (Vitamin C) 500 Mg Tab, 500 MG PO DAILY Aspirin (Aspirin) 81 Mg Tab.chew, 81 MG PO DAILY Atorvastatin Calcium (Atorvastatin Calcium) 20 Mg Tablet, 20 MG PO QHS Carbidopa/Levodopa (Sinemet 25-100 mg Tablet) 1 Each Tablet, 1 TAB PO QID Carboxymethylcellulose Sodium (Refresh Tears) 15 Ml Drops, 1 DROP OU QID Cyanocobalamin (Vitamin B-12) (Vitamin B-12) 1,000 Mcg Tab, 1,000 MCG PO DAILY Glipizide (Glipizide) 5 Mg Tablet, 2.5 MG PO DAILY Insulin Glargine,Hum.rec.anlog (Basaglar Kwikpen U-100) 100 Unit/1 Ml Insuln.pen, 8 UNIT SC QHS Rasagiline Mesylate (Azilect) 1 Mg Tablet, 0.5 MG PO DAILY Sitagliptin Phosphate (Januvia) 25 Mg Tablet, 25 MG PO DAILY Scheduled PRN Acetaminophen (Acetaminophen) 325 Mg Tablet, 650 MG PO Q4H PRN for PAIN Bisacodyl (Dulcolax) 10 Mg Supp.rect, 10 MG SD DAILY PRN for CONSTIPATION Docusate Sodium (Docusate Sodium) 100 Mg Capsule, 100 MG PO DAILYPRN PRN for CONSTIPATION Milk Of Magnesia (Milk of Magnesia) 2,400 Mg/10 Ml Oral.susp, 10 ML PO DAILY PRN for CONSTIPATION Scopolamine (Transderm-Scop) 1 Each Patch.td.3, 1 PATCH TOP Q72H PRN for EXCESSIVE SECRETIONS Sodium Phosphate,[place]-Dibasic (Fleet Enema) 133 Ml Enema, 1 SMILEY SD DAILY PRN for CONSTIPATION Allergies Coded Allergies: No Known Allergies (Unverified , 12/20/19) A-FIB/CHADSVASC A-FIB History Current/History of A-Fib/PAF?: No MATILDA VERAS MD Jan 26, 2020 23:30
[2020-01-27] MEDS ORDERED: NS 1,000 ML IV SCH (06:00)
[2020-01-27] MEDS ORDERED: cefTRIAXone SOD 2 GM VIAL (J0696 PER 250MG) IM SCH (06:00)
[2020-01-27 06:53] LABS: HEMATOCRIT 32.8 % (42.0-52.0); HEMOGLOBIN 10.8 g/dl (13.5-17.5); MEAN CORPUSCULAR HEMOGLOBIN 31.3 pg (27.0-33.0); MEAN CORPUSCULAR HGB CONC 32.9 g/dl (32.0-36.5); MEAN CORPUSCULAR VOLUME 95.1 fl (80.0-96.0); PLATELET COUNT, AUTOMATED 157 10^3/uL (150-450); RED BLOOD COUNT 3.45 10^6/uL (4.30-6.10); WHITE BLOOD COUNT 9.6 10^3/uL (4.0-10.0)
[2020-01-27 07:13] LABS: CALCIUM LEVEL 9.2 MG/DL (8.8-10.2); CREATININE FOR GFR 1.24 MG/DL (0.70-1.30); POTASSIUM SERUM 4.1 MEQ/L (3.5-5.1)
[2020-01-27] MEDS ORDERED: DEXTROSE 50% 50 ML SYRINGE IV PRN (07:15)
[2020-01-27] MEDS ORDERED: GLUCOSE 4GM CHEW TABLET PO PRN (07:15)
[2020-01-27] MEDS ORDERED: GLUCAGON INJ 1MG VIAL SC PRN (07:15)
[2020-01-27] MEDS: HumaLOG INSULIN (NovoLOG) PER UNIT SC SCH ×2 (07:30→11:22)
[2020-01-27] MEDS ORDERED: cefTRIAXone SOD 2 GM in D5W MINI-BAG PLUS 50 ML IV SCH (08:00)
--- NOTE | 2020-01-27 08:03 | ECGEPIP ---
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
[2020-01-27] MEDS: HEPARIN SOD (PORCINE) 5000UNITS/ML 1ML VIAL/SYRINGE SC SCH (09:53)
[2020-01-27 10:10] VITALS: BP 173/74
[2020-01-27] MEDS ORDERED: HumaLOG INSULIN (NovoLOG) PER UNIT SC SCH (21:00)
[2020-01-29] MEDS ORDERED: methylPREDNISolone 125MG 2ML VIAL As Ordered ONE (08:53)
[2020-01-29] MEDS ORDERED: HEPARIN SOD (PORCINE) 5000UNITS/ML 1ML VIAL/SYRINGE ONE ×2 (08:53→22:11)
[2020-01-29] MEDS ORDERED: methylPREDNISolone 125MG 2ML VIAL ONE ×2 (08:53→12:53)
[2020-01-29] MEDS ORDERED: HumaLOG INSULIN (NovoLOG) PER UNIT ONE ×2 (08:53→12:40)
[2020-01-30] MEDS ORDERED: HEPARIN SOD (PORCINE) 5000UNITS/ML 1ML VIAL/SYRINGE ONE ×2 (10:25→21:45)
[2020-01-30] MEDS ORDERED: CIPROFLOXACIN ONE ×2 (18:00)
[2020-01-30] MEDS ORDERED: D5W ONE ×2 (18:00)
[2020-01-31] MEDS ORDERED: CIPROFLOXACIN ONE ×2 (06:00→11:30)
[2020-01-31] MEDS ORDERED: D5W ONE ×2 (06:00→11:30)
[2020-01-31] MEDS ORDERED: HEPARIN SOD (PORCINE) 5000UNITS/ML 1ML VIAL/SYRINGE ONE ×2 (09:05→10:56)
[2020-02-01] MEDS ORDERED: HEPARIN SOD (PORCINE) 5000UNITS/ML 1ML VIAL/SYRINGE ONE ×2 (08:26→09:22)
[2020-02-01] MEDS ORDERED: CIPROFLOXACIN 500MG TABLET As Ordered ONE ×2 (09:22→20:26)
[2020-02-01] MEDS ORDERED: ACETAMINOPHEN TAB 650MG DOSE (2X325MG) ONE (09:22)
[2020-02-01] MEDS ORDERED: MORPHINE 2 MG/ML 1ML VIAL (J2270) As Ordered ONE (10:20)
[2020-02-02] MEDS ORDERED: ACETAMINOPHEN TAB 650MG DOSE (2X325MG) ONE (06:21)
[2020-02-02] MEDS ORDERED: CIPROFLOXACIN 500MG TABLET As Ordered ONE (06:21)
[2020-02-03] MEDS ORDERED: MORPHINE 2 MG/ML 1ML VIAL (J2270) As Ordered ONE (15:48)
[2020-02-07] MEDS ORDERED: MORPHINE 2 MG/ML 1ML VIAL (J2270) As Ordered ONE ×3 (09:07→17:55)
[2020-02-07] MEDS ORDERED: SCOPOLAMINE 1MG TRANSDERMAL PATCH As Ordered ONE (12:02)
[2020-03-08 11:40] LABS: HEMOGLOBIN 9.3 g/dl (13.5-17.5); LYMPH # 0.5 10^3/uL (1.5-5.0); LYMPH % 4.6 % (24.0-44.0); MEAN CORPUSCULAR HEMOGLOBIN 30.7 pg (27.0-33.0); MEAN CORPUSCULAR HGB CONC 32.1 g/dl (32.0-36.5); MEAN CORPUSCULAR VOLUME 95.7 fl (80.0-96.0); MONO # 0.9 10^3/uL (0.0-0.8); MONO % 8.5 % (0.0-5.0); NEUTROPHILS # 8.7 10^3/uL (1.5-8.5); NEUTROPHILS % 86.5 % (36.0-66.0); PLATELET COUNT, AUTOMATED 159 10^3/uL (150-450); RED BLOOD COUNT 3.03 10^6/uL (4.30-6.10)
[2020-03-08 14:11] LABS: HEMATOCRIT 31.8 % (42.0-52.0); HEMOGLOBIN 10.4 g/dl (13.5-17.5); MEAN CORPUSCULAR HEMOGLOBIN 30.3 pg (27.0-33.0); MEAN CORPUSCULAR HGB CONC 32.7 g/dl (32.0-36.5); MEAN CORPUSCULAR VOLUME 92.7 fl (80.0-96.0); PLATELET COUNT, AUTOMATED 156 10^3/uL (150-450); RED BLOOD COUNT 3.43 10^6/uL (4.30-6.10); WHITE BLOOD COUNT 7.9 10^3/uL (4.0-10.0)
[2020-03-14 11:23] LABS: ALBUMIN 2.7 GM/DL (3.2-5.2); ALT/SGPT 25 U/L (12-78); BILIRUBIN,TOTAL 0.6 MG/DL (0.2-1.0); BLOOD UREA NITROGEN 21 MG/DL (7-18); CALCIUM LEVEL 8.6 MG/DL (8.8-10.2); CARBON DIOXIDE LEVEL 26 MEQ/L (21-32); CHLORIDE LEVEL 110 MEQ/L (98-107); CREATININE FOR GFR 1.06 MG/DL (0.70-1.30); GLOMERULAR FILTRATION RATE > 60.0 (>35); GLUCOSE, FASTING 97 MG/DL (70-100); POTASSIUM SERUM 3.5 MEQ/L (3.5-5.1); SODIUM LEVEL 144 MEQ/L (136-145); TOTAL PROTEIN 5.8 GM/DL (6.4-8.2)
[2020-03-14 11:37] LABS: BLOOD UREA NITROGEN 24 MG/DL (7-18); CALCIUM LEVEL 8.5 MG/DL (8.8-10.2); CARBON DIOXIDE LEVEL 25 mmol/L (20-29); CHLORIDE LEVEL 115 MEQ/L (98-107); CREATININE FOR GFR 1.21 MG/DL (0.70-1.30); GLOMERULAR FILTRATION RATE > 60.0 (>35); GLUCOSE, FASTING 195 MG/DL (70-100); MAGNESIUM LEVEL 2.1 MG/DL (1.8-2.4); POTASSIUM SERUM 3.6 MEQ/L (3.5-5.1); SODIUM LEVEL 146 MEQ/L (136-145)
== END 2020-02-09 10:30 | disposition hospice, inpatient (51) | DRG 57 ==
LOC: M ED 14:55 → EDBD 14:55 → M ED INP 18:17 → M MSPAV 01-27 12:30
PROVIDERS: ADMIT Internal Medicine; ATTEND Internal Medicine
DX: G31.83 Neurocognitive disorder with Lewy bodies (principal); N39.0 Urinary tract infection, site not specified; F02.80 Dementia in other diseases classified elsewhere, unspecified severity, without behavioral disturbance, psychotic disturbance, mood disturbance, and anxiety; N18.3 Chronic kidney disease, stage 3 (moderate); E11.9 Type 2 diabetes mellitus without complications; I12.9 Hypertensive chronic kidney disease with stage 1 through stage 4 chronic kidney disease, or unspecified chronic kidney disease; E78.5 Hyperlipidemia, unspecified; I25.10 Atherosclerotic heart disease of native coronary artery without angina pectoris; Z79.82 Long term (current) use of aspirin; Z79.899 Other long term (current) drug therapy; Z79.4 Long term (current) use of insulin; Z88.1 Allergy status to other antibiotic agents; R13.10 Dysphagia, unspecified